=== PATIENT | male | born 1980 | race Caucasian/White ===

== ENCOUNTER 2020-03-24 09:09 | Emergency (ER) | payer OTHER, SELFPAY ==
[2020-03-24 09:24] VITALS: BP 137/78; PULSE 77; RESP 16; TEMP 37; O2SAT 97; BMI 38.4
[2020-03-24] MEDS: diphenhydrAMINE HCL 25 MG TABLET 50 MG PO (09:40)
[2020-03-24] MEDS: predniSONE 10 MG TABLET 50 MG PO (09:40)
--- NOTE | 2020-03-24 09:42 | ED_ITS ---
HPI - General Adult General Chief complaint: General Medical Stated complaint: rash Time Seen by Provider: 03/24/20 09:31 Source: patient Mode of arrival: ambulatory Limitations: no limitations History of Present Illness HPI narrative: 40 y/o male presenting with itchy, red rash to his arms, chest and stomach for the last 2 days. He reports it started on his upper arms and has spread to his chest and abdomen. He denies new lotions, soaps or detergents. No new foods. No wheezing, mouth or facial swelling. He has not taken any medications or used any topical lotions for the rash. MD complaint: rash Onset (ago): day(s) (2) Related Data Previous Rx's Medication Instructions Recorded prednisone 50 mg PO DAILY #5 tab 03/24/20 Allergies Allergy/AdvReac Type Severity Reaction Status Date / Time No Known Allergies Allergy Unverified 11/18/19 16:16 [No Known Allergies*] Review of Systems Review of Systems: Constitutional: No Fever, No Chills ENT/Mouth: No sore throat Eyes: No Eye Pain, No Swelling, No Redness Cardiovascular: No Chest Pain, No SOB Respiratory: No Cough, No Sputum Gastrointestinal: No Nausea, No Vomiting, No Diarrhea, No abdominal Pain Musculoskeletal: No joint pain, No Myalgias Skin: + Skin Lesions, + Rash Neuro: No Headache Heme/Lymph: No Bruising, No Lymphadenopathy PMFSH Past Medical History Attestation statement: The following information was validated with the patient. Medical History Asthma Social History Social History Smoked in Last 30 Days: No Use of substances other than those prescribed or required for medical reasons: No Advance Directives: No Advance Directives Information Provided: No Physical Exam Vital Signs: Vital Signs: Last Vital Signs Temp 98.6 F 03/24/20 09:24 Pulse 77 03/24/20 09:24 Resp 16 03/24/20 09:24 BP 137/78 03/24/20 09:24 Pulse Ox 97 03/24/20 09:24 Body Mass Index 38.4 Appearance: Alert. Oriented X3. No acute distress. HEENT: normal inspection. No facial swelling. CVS: Normal heart rate and rhythm. Pulses normal. Respiratory: No respiratory distress. Lungs CTAB Skin: Skin warm and dry. Normal skin color. Erythematous maclopapular rash to bilateral upper arms, chest and abdomen. No crusting, no surrounding erythema or warmth. Extremities: atraumatic, no swelling. Neuro: Oriented X 3. No motor deficit. No sensory deficit. Course Course Course Narrative: 40 y/o male presenting with pruritic rash, unknown cause. Given BSA will treat with systemic steroids. Not infected at this time. Advised to take Benadryl around the clock until resolution. Warning signs discussed to prompt re-evaluation in the ER. He will f/u with PCP next week. Stable for or[place] alfred. Critical Care Time Critical Care Time Critical Care Time: No Discharge Plan Discharge Clinical Impression: Dermatitis Patient Disposition: Home, Self-Care Instructions: Contact Dermatitis (ED) Additional Instructions: Use cool compresses or ice to the area to help with discomfort and itching. Take the prescribed steroid medication as directed. Take 1st dose tomorrow - you were given today's dose in the ER. Recommend taking Benadryl 50 mg every 6 hours for the next 24 hours. You can try topical hydrocortisone 1% lotion (Found over the counter) for itching as well. Use hypoallergenic detergent. Avoid scented soaps and lotions. If you develop shortness of breath, wheezing or facial swelling come back to the ER for further evaluation. Prescriptions: New prednisone 50 mg tablet 50 mg PO DAILY Qty: 5 RF: 0 Stand Alone Forms: Work/School Release Interventions: ED Discharge Assessment Last Done: 03/24/20 10:00 Discharge Date/Time: 03/24/20 10:01
== END 2020-03-24 10:01 | disposition home or self-care (01) ==
PROVIDERS: Emergency Provider Internal Medicine
DX: L25.9 Unspecified contact dermatitis, unspecified cause (principal); R21 Rash and other nonspecific skin eruption; J45.909 Unspecified asthma, uncomplicated
CPT/HCPCS: 99283; Q0163

== ENCOUNTER 2020-03-28 12:36 | Emergency (ER) | payer OTHER, SELFPAY ==
[2020-03-28 12:52] VITALS: BP 151/103; PULSE 66; RESP 16; TEMP 36.6; O2SAT 97; BMI 37.2
--- NOTE | 2020-03-28 12:53 | ED.ALLEREA ---
HPI - Allergic Reaction General Chief complaint: Skin/Abscess/Foreign Body Stated complaint: RASH Time Seen by Provider: 03/28/20 12:50 Source: patient Mode of arrival: ambulatory Limitations: no limitations History of Present Illness HPI narrative: Patient presents to the ED for allergic reaction rash that is improving. patient states he also needs clearnace letter from work stating rash is not contagious. patient states rash on abdomen, neck, and back resolved. patietn states only remaining rash is rash on arms. patient states his benardyl and prednisone that was prescribed was finish. MD complaint: allergic reaction and hives Related Data Previous Rx's Medication Instructions Recorded prednisone 50 mg PO DAILY #5 tab 03/24/20 diphenhydramine HCl [Benadryl] 25 mg PO TID PRN 5 Days #15 cap 03/28/20 prednisone 40 mg PO DAILY 4 Days #8 tab 03/28/20 Allergies Allergy/AdvReac Type Severity Reaction Status Date / Time No Known Allergies Allergy Unverified 11/18/19 16:16 [No Known Allergies*] Review of Systems Review of Systems: Yes all other systems are reviewed and are negative Constitutional: Constitutional: Reports as per HPI and Reports no additional constitutional complaints Eyes: Eyes: Reports as per HPI and Reports no additional eye complaints ENT: Reports system reviewed and no additional complaints, except as documented and Reports as per HPI Cardiovascular: Cardiovascular: Reports as per HPI, Reports no additional cardiovascular complaints, Denies chest pain, Denies dyspnea and Denies dyspnea on exertion Respiratory: Respiratory: Reports as per HPI, Reports no additional respiratory complaints, Denies cough, Denies dyspnea and Denies dyspnea on exertion Gastrointestinal: Gastrointestinal: Reports as per HPI and Reports no additional gastrointestinal complaints Genitourinary: Genitourinary: Reports no additional male genitourinary complaints and Reports as per HPI Musculoskeletal: Musculoskeletal: Reports no additional musculoskeletal complaints and Reports as per HPI Neurologic: Reports system reviewed and no additional complaints, except as documented and Reports as per HPI Psychiatric: Psychiatric: Reports no additional psychiatric complaints and Reports as per HPI PMFSH Past Medical History Medical History Asthma Social History Social History Advance Directives: Yes Advance Directives Information Provided: Yes Advance Directives on File: No Physical Exam Vital Signs: Vital Signs: Last Vital Signs Temp 97.8 F 03/28/20 12:52 Pulse 66 03/28/20 12:52 Resp 16 03/28/20 12:52 BP 151/103 H 03/28/20 12:52 Pulse Ox 97 03/28/20 12:52 Body Mass Index 37.2 Const: General: cooperative, healthy appearing, comfortable, no acute distress and well developed Orientation/consciousness: patient oriented x3 HENMT: Other: negative for any facial swelling, tongue swelling, lip swelling, drooling, facial/neck rash, or uvula swelling. Head: Yes normal to inspection and Yes No palpable skull fracture present Mouth: Normal oral and palatal mucosa present, lip normal and tongue normal Throat: Yes posterior oropharynx normal, Yes tonsils normal and Yes uvula midline Eyes: General: appearance normal, both eyes and all related structures Neck: Neck: Yes normal visual inspection, Yes full ROM, Yes no lymphadenopathy, Yes no meningeal signs, Yes trachea midline, No anterior neck swelling, No bilateral parotid enlargement, No lymphadenopathy, No midline deformity, No positive Brudzinski's sign, No positive Kernig's sign and No tender Chest: Other: negative for rash Chest palpation & inspection: normal inspection of the chest and normal palpation of entire chest wall Resp: Effort & Inspection: normal respiratory effort and able to speak in complete sentences Auscultation: clear to auscultation bilaterally Cardio: Jugular venous distension: no JVD Heart sounds: S1 normal heart sound present and S2 normal heart sound present GI: Other: negative for rash Inspection: Yes normal to inspection : General: No CVA tenderness and Yes no CVA tenderness Back/Spine/Pelvis: Other: negative for rash Back: no CVA tenderness, No CVA tenderness and No back tenderness Skin: Other: uticaria on biceps of both upper extremities Neuro: General: patient oriented x3, gait normal, no meningeal signs and CN's II-XI intact bilaterally Extrem: General: Yes normal to inspection and Yes full ROM Psych: Appearance: grossly normal, well kempt and not disheveled Course Course Course Narrative: Rash is improving. Patient will be given three more days of prednisone and benadryl. patient informed he can return to work. patient states no one else at home has similiar rash to him. rash indicates allergic reaction. Reevaluation(s) Reevaluation #1: patient discharged with bendaryl and prednisone. patient educated on high blood pressure due to initial blood pressure on triage. patient is asymptomatic and has no stroke symptoms. Patient informed to follow up with his PCP to monitor his blood pressure. Time: 12:58 Discharge Plan Discharge Clinical Impression: Allergic reaction Patient Disposition: Home, Self-Care Instructions: Urticaria (ED), General Allergic Reaction (ED) Additional Instructions: Return to the ED for lip/tongue/uvula swelling, shortness of breath, sensation of throat closing, fever, chills, chest pain, worsening rash, or any other concerning symptoms. Please follow up with PCP for patch test. Prescriptions: New prednisone 20 mg tablet 40 mg PO DAILY 4 Days Qty: 8 RF: 0 diphenhydramine HCl [Benadryl] 25 mg capsule 25 mg PO TID PRN (Reason: allergic reaction) 5 Days Qty: 15 RF: 0 No Action prednisone 50 mg tablet 50 mg PO DAILY Qty: 5 RF: 0 Stand Alone Forms: Work/School Release Interventions: ED Discharge Assessment Last Done: 03/28/20 13:04 Discharge Date/Time: 03/28/20 13:05 Print Language: Icelandic
== END 2020-03-28 13:05 | disposition home or self-care (01) ==
PROVIDERS: Emergency Provider Emergency Medicine
DX: T78.40XA Allergy, unspecified, initial encounter (principal); L50.9 Urticaria, unspecified; X58.XXXA Exposure to other specified factors, initial encounter
CPT/HCPCS: 99283

== ENCOUNTER 2022-09-08 08:58 | Emergency (ER) | payer OTHER, SELFPAY ==
[2022-09-08 09:04] VITALS: BP 151/95; PULSE 74; RESP 16; TEMP 36.1; O2SAT 98; BMI 37.1
[2022-09-08 09:47] VITALS: BP 139/77; PULSE 65; RESP 18; O2SAT 99
--- NOTE | 2022-09-08 10:27 | ED_ITS ---
HPI - Back Pain/Injury General Chief Complaint: Back Pain/Injury Stated Complaint: Back pain Time Seen by Provider: 09/08/22 09:47 Source: patient and RN notes reviewed Mode of arrival: ambulatory Limitations: no limitations History of Present Illness HPI Narrative: This is a 42-year-old male, with a past medical history of nephrolithiasis, presenting to the emergency department for evaluation of low back pain since yesterday. Patient states that while he was standing up from his kitchen table he suddenly felt low back pain. Patient over this past week has been worked up for kidney stones at [facility] and has a follow-up with Urology tomorrow. He states that the pain that he has in his back is different than his kidney stone pain. Patient denies any weakness, numbness, or tingling. He d enies any saddle anesthesia, denies bladder or bowel incontinence. Denies any fevers, chills, chest pain, shortness breath, abdominal pain, nausea, vomiting, or diarrhea. No other complaints or concerns at this time. MD elicited complaint: back pain Onset (ago): hour(s) Timing: constant Severity: moderate Quality: aching Location: lumbar spine Radiation: none Exacerbating factors: none Relieving factors: none Associated symptoms: denies other symptoms Treatments prior to arrival: NSAIDS Related Data Previous Rx's Medication Instructions Recorded acetaminophen 325 mg tablet 650 mg PO QID PRN pain #30 tabs 09/08/22 (Tylenol) cyclobenzaprine 5 mg tablet 5 mg PO TID PRN muscle spasm #20 09/08/22 tabs ibuprofen 600 mg tablet 600 mg PO TID PRN pain #30 tabs 09/08/22 Allergies Allergy/AdvReac Type Severity Reaction Status Date / Time No Known Allergies Allergy Unverified 09/08/22 09:07 [No Known Allergies*] Review of Systems Review of Systems: Constitutional: No Weight loss, No Fever, No Chills ENT/Mouth: No Ear Pain, No Nasal Congestion, No Sinus Pain, No Hoarseness, No sore throat, No Rhinorrhea, No Swallowing Difficulty Cardiovascular: No Chest Pain, No SOB Respiratory: No Cough, No Sputum, No Wheezing Gastrointestinal: No Nausea, No Vomiting, No Diarrhea, No Constipation, No Abdominal pain Genitourinary: No Dysuria, No Urinary Frequency, No Hematuria, No Urinary Incontinence/retention, No Urgency, No Flank Pain Musculoskeletal: No joint pain, No Myalgias, No Joint Swelling Skin: No Skin Lesions, No rash Neuro: No Weakness, No Numbness, No Paresthesias Yes all other systems are reviewed and are negative Constitutional: Constitutional: Reports as per [facility] Past Medical History Medical History Asthma Social History Social History Advance Directives: No Advance Directives Information Provided: No Physical Exam Vital Signs: Vital Signs: Last Vital Signs Temp 97 F 09/08/22 09:04 Pulse 65 09/08/22 09:47 Resp 18 09/08/22 09:47 BP 139/77 09/08/22 09:47 Pulse Ox 99 09/08/22 09:47 O2 Del Method Room Air 09/08/22 09:47 BMI result Body Mass Index 37.1 Const: Other: ambulatory General: cooperative, comfortable and no acute distress Orientation/consciousness: patient oriented x3 Limitations: no limitations HEENT: Head: Yes normal to inspection, Yes normocephalic and Yes atraumatic Ears: hearing grossly normal bilaterally General nose exam: Normal external nose present Face and sinus: Yes normal facial exam Mouth: Normal oral and palatal mucosa present, oropharynx normal and moist mucous membranes Throat: Yes posterior oropharynx normal Eyes: General: appearance normal, both eyes and all related structures Eyelids: Yes eyelids normal Conjunctivae: conjunctivae normal Sclerae: sclerae normal Pupils: Equal, round and reactive pupils present EOM: EOMs intact bilaterally Neck: Neck: Yes normal visual inspection, Yes full ROM and Yes no lymphadenopathy Lymphatic: no lymphadenopathy noted Chest: Chest palpation & inspection: normal inspection of the chest Resp: Effort & Inspection: normal respiratory effort and able to speak in complete sentences Auscultation: clear to auscultation bilaterally, no crackles, no rales, no rhonchi and no wheezes Cardio: Rate: regular rate Rhythm: regular rhythm Heart sounds: S1 normal heart sound present and S2 normal heart sound present GI: Inspection: Yes normal to inspection Back/Spine/Pelvis: Other: Patient has midline spine tenderness to palpation the lumbar spine. Mild tenderness palpation along the lumbar paraspinous muscles. Patient is ambulatory, DTRs 2+ Thoracic/Lumbar Spine: thoracic and lumbar spine normal to inspection Skin: General skin exam: no rashes or lesions noted Trauma: no lacerations or abrasions Wounds: no wounds Neuro: General: patient oriented x3 and moves all extremities Cranial nerves: Yes Equal, round and reactive pupils present Extrem: General: Yes normal to inspection Right upper extremity: normal to inspection Left upper extremity: normal to inspection Right lower extremity: normal to inspection Left lower extremity: normal to inspection Course Reevaluation(s) Reevaluation #1: unremarkable lumbar spine xrays. Sxs likely due to MSK in nature, will treat conservatively, advised to f/u with PCP. Pt understands and agrees with plan. Stable for d/c. Medications Administered Discontinued Medications Generic Name Dose Route Start Last Admin Trade Name Freq PRN Reason Stop Dose Admin Diazepam 2 mg 09/08/22 12:05 09/08/22 12:19 Diazepam 2 Mg Tablet PO 09/08/22 12:06 2 mg ONCE ONE Administration Ketorolac Tromethamine 30 mg 09/08/22 10:27 09/08/22 10:56 Ketorolac Tromethamine 30 Mg/Ml Vial IM 09/08/22 10:28 30 mg ONCE ONE Administration Medical Decision Making Medical Decision Making MDM Narrative: 42-year-old male, with a past medical history kidney stones, presenting to the emergency department for evaluation of back pain since yesterday. Patient states that while he was transitioning from seated to standing, he suddenly felt back pain. He is currently being worked up for kidney stones, and has a follow- up appointment with urologist tomorrow. He states that his current back pain is different that his kidney stone back pain. He tried taking ibuprofen yesterday without any relief. Pain worsens with palpation and with movement and positional changes. No red flag back pain symptoms. VSS. Plan: Toradol 30 mg IM, lumbar spine x-ray Differential Diagnosis Differential Diagnoses: The differential diagnosis associated with the presentation includes Sciatica, disc herniation, fracture, cauda equina syndrome Admission/Observation Consideration of admission/observation: Escalation of care including admission/observation considered Patient would have been admitted to the hospital had her work up had any findings where hospital admission was appropriate and her clinical presentation warranted hospital admission. Lab Data [facility] Lab Attestation statement: I reviewed the patient's lab results. Radiology Impression Discussion of test interpretation with radiology: I have reviewed the radiologist's reading. External Record Review External record reviewed: Inpatient record, Office record, Outpatient record, Prior outpatient labs, Prior outpatient radiology, Primary care record and Outside ED record Discharge Plan Discharge Clinical Impression: Strain of lumbar region Patient Disposition: Home, Self-Care Instructions: Acute Low Back Pain (ED) Additional Instructions: Your x-rays did not show any broken bones today. You likely pulled a muscle in her back which is causing you to have your symptoms. We gave you Toradol which is a similar medication to ibuprofen. We also give you muscle relaxant, this will cause drowsiness, do not drink alcohol or drive while taking these medications. Take prescribed medication as directed. Please follow-up with your primary care physician regarding this visit. If any new or worsening symptoms occur, including but not limited to numbness and tingling in your groin, loss of bladder or bowel control, weakness, please return for re-evaluation. Prescriptions: New ibuprofen 600 mg tablet 600 mg PO TID PRN (Reason: pain) Qty: 30 0RF acetaminophen [Tylenol] 325 mg tablet 650 mg PO QID PRN (Reason: pain) Qty: 30 0RF cyclobenzaprine 5 mg tablet 5 mg PO TID PRN (Reason: muscle spasm) Qty: 20 0RF Interventions: ED Discharge Assessment Last Done: 09/08/22 12:22 Discharge Date/Time: 09/08/22 12:22
== END 2022-09-08 12:22 | disposition home or self-care (01) ==
PROVIDERS: Emergency Provider Emergency Medicine
DX: M54.50 Low back pain, unspecified (principal); Z79.899 Other long term (current) drug therapy
CPT/HCPCS: 72100; 96372; 99283; 99284; J1885

== ENCOUNTER 2023-01-02 14:26 | Observation (INO) | payer BC, OTHER, SELFPAY ==
[2023-01-02] VITALS (8 sets, daily range): BP systolic 128–151; BP diastolic 77–95; PULSE 91–105; RESP 16–26; TEMP 36.4–37.1; O2SAT 93–97; BMI 38.1; BMI 37.6
--- NOTE | ~2023-01-02 | XR_ITS ---
EXAMINATION: XR CHEST CLINICAL INFORMATION: Wheezing. COMPARISON: Chest radiograph 11/08/2019. TECHNIQUE: 2 views of the chest were obtained. FINDINGS: Normal heart size. Bilateral central peribronchial cuffing and central vasculature engorgement is stable compared to 11/08/2019. No new focal airspace densities. No pleural effusion or pneumothorax. No acute osseous findings. Visualized upper abdomen is within normal limits. XR/XR chest 2V IMPRESSION: 1. Central vasculature engorgement and peribronchial cuffing is stable compared to 11/08/2019; these could be seen in the context of chronic small airways disease. 2. No new focal airspace densities. 3. No pleural effusion or pneumothorax.
--- NOTE | 2023-01-02 14:49 | ED_ITS ---
HPI - General Adult General Chief complaint: Asthma Stated complaint: asthma Time Seen by Provider: 01/02/23 14:57 Source: patient Mode of arrival: ambulatory Limitations: no limitations History of Present Illness HPI narrative: Patient is a 42 year old assigned male at with a history of asthma presenting to the emergency department today with an asthma exacerbation. Patient states that over the last 3 days the patient has had worsening shortness of breath and difficulty breathing. Patient denies any dizziness, lightheadedness, abdominal pain, nausea, vomiting, fever, chills, blurry vision, double vision, loss of vision, chest pain, back pain, night sweats, pain with urination, increased urinary frequency, increased urinary urgency, blood in his urine or stool, syncope or a near syncopal episode, recent trauma or falls, bowel incontinence, bladder incontinence, bowel retention, bladder retention, or any other complaints at this time. Onset (ago): day(s) (3) Severity: moderate Severity scale (1-10): 5 Relieving factors: none Exacerbating factors: none Associated symptoms: shortness of breath Treatments prior to arrival: none Related Data Home Medications Medication Instructions Recorded Confirmed No Known Home Meds 01/02/23 01/02/23 Allergies Allergy/AdvReac Type Severity Reaction Status Date / Time No Known Allergies Allergy Verified 01/02/23 14:48 [No Known Allergies*] Review of Systems 2 Constitutional: Constitutional: Reports no additional constitutional complaints, Denies chills, Denies fever(s) and Denies night sweats Eyes: Eyes: Reports no additional eye complaints, Denies blurry vision, Denies change in vision, Denies diplopia, Denies eye discharge, Denies loss of vision and Denies eye pain ENT: Denies dizziness Cardiovascular: Cardiovascular: Reports no additional cardiovascular complaints, Denies chest pain, Denies lightheadedness, Denies Loss of Consciousness and Reports dyspnea Respiratory: Respiratory: Reports no additional respiratory complaints and Reports dyspnea Gastrointestinal: Gastrointestinal: Reports no additional gastrointestinal complaints, Denies abdominal pain, Denies melena, Denies hematochezia, Denies change in bowel habits and Denies change in stool character Genitourinary: Genitourinary: Reports no additional male genitourinary complaints, Denies hematuria, Denies oliguria, Denies difficulty urinating, Denies dysuria, Denies urinary frequency, Denies urinary hesitancy, Denies urinary incontinence and Denies urinary urgency Musculoskeletal: Musculoskeletal: Reports no additional musculoskeletal complaints, Denies numbness and Denies tingling Neurologic: Denies dizziness, Denies loss of vision, Denies numbness and Denies tingling Psychiatric: Psychiatric: Reports no additional psychiatric complaints Endocrine: Endocrine: Reports no additional endocrine complaints Hematologic/Lymphatic: Hematologic/Lymphatic: Reports no additional hematologic/lymphatic complaints Allergic/Immunologic: Allergic/Immunologic: Reports no additional allergic/immunologic complaints [facility] Past Medical History Attestation statement: The following information was validated with the patient. Source: old records reviewed and nursing notes reviewed Medical History Asthma Social History Social History Advance Directives: No Advance Directives Information Provided: No Physical Exam ED Vital Signs: Vital Signs - 24 hr 01/02/23 14:48 01/02/23 15:24 01/02/23 16:22 Temperature 98.8 F Pulse Rate 100 105 H 97 Respiratory Rate 20 26 H 26 H Blood Pressure 138/95 H Pulse Oximetry 93 Oxygen Delivery Method Room Air 01/02/23 16:44 Temperature 97.9 F Pulse Rate 104 H Respiratory Rate 19 Blood Pressure 151/85 H Pulse Oximetry 97 Oxygen Delivery Method Room Air BMI result Body Mass Index 38.1 Const General: cooperative, no acute distress, alert and awake Nutritional Appearance: well nourished Orientation/consciousness: patient oriented x3 Limitations: no limitations [facility] Head: Yes normal to inspection and Yes atraumatic Ears: hearing grossly normal bilaterally and external ears normal General nose exam: Normal external nose present, no nasal discharge noted and no epistaxis Face and sinus: Yes normal facial exam, No abrasion and No laceration Mouth: Normal oral and palatal mucosa present, no drooling and no muffled voice Eyes General: appearance normal, both eyes and all related structures Periorbital: periorbital findings normal Eyelids: Yes eyelids normal Conjunctivae: conjunctivae normal Pupils: Equal, round and reactive pupils present EOM: EOMs intact bilaterally Neck Neck: Yes normal visual inspection, Yes full ROM and Yes no lymphadenopathy Chest Chest palpation & inspection: normal inspection of the chest Resp Effort & Inspection: able to speak in complete sentences and labored Auscultation: wheezes scattered wheezes Cardio Rate: regular rate Rhythm: regular rhythm GI Inspection: Yes normal to inspection Neuro General: patient oriented x3 and moves all extremities Cranial nerves: Yes Equal, round and reactive pupils present Cognition (Neuro): normal cognition Motor exam (neuro): 5/5 motor strength present throughout Sensory Exam: Normal double simultaneous stimulation for sensation Coordination: [id number] test normal Extrem General: Yes normal to inspection, Yes full ROM and Yes capillary refill normal Psych Appearance: grossly normal Mental Status: mental status grossly normal Affect: normal affect Attitude: cooperative Thought process: Normal thought process present Thought content: Normal thought content present Insight: Good insight present (Psych) Course Course Course Narrative: Patient with history of asthma has been using his albuterol for past 3 days with minimal relief, it helps but then wheezing comes back Denies fever or cough denies chest pain, O2 sat 93%, no respiratory distress Chest x-ray ordered This is rapid medical exam in triage pending full evaluation in the ER by ER provider for full history and physical review of all results any needed further evaluation and disposition Medications Administered Generic Name Dose Route Start Last Admin Trade Name Freq PRN Reason Stop Dose Admin Magnesium Sulfate 2 gm in 50 mls @ 25 mls/hr 01/02/23 16:28 01/02/23 16:48 Magnesium Sulfate/H2o IV 01/02/23 18:27 25 mls/hr ONCE ONE Administration Discontinued Medications Generic Name Dose Route Start Last Admin Trade Name Freq PRN Reason Stop Dose Admin Albuterol Sulfate 5 mg/ 7.5 mg 01/02/23 16:18 01/02/23 16:22 Albuterol Sulfate 2.5 mg INHALE 01/02/23 16:19 7.5 mg ONCE ONE Administration Albuterol Sulfate 5 mg/ 0 mg 01/02/23 15:14 01/02/23 15:20 Albuterol/Ipratropium 3 ml INHALE 01/02/23 15:15 5 each ONCE ONE Administration Methylprednisolone Sodium Succinate 60 mg 01/02/23 14:57 01/02/23 15:21 Methylprednisolone Sod Succ 125 Mg/2 Ml Vial IM 01/02/23 14:58 60 mg ONCE ONE Administration Medical Decision Making Medical Decision Making MDM Narrative: Patient is a 42 year old assigned male at with a history of asthma presenting to the emergency department today with an asthma exacerbation. Patient's physical exam was as noted in the physical exam portion of this note. Patient's blood work was unremarkable. Patient's chest x-ray showed no acute process. I explained my physical exam findings as well as all test results to the patient. I answered all questions asked by the patient. Patient received solu-medrol, IV magnesium, and 2 high dose duonebs however, the patient's symptoms persisted. I spoke with the hospitalist who agreed to admission. Patient verbalized agreement and understanding with this treatment plan and admission. Differential Diagnosis Differential Diagnoses: The differential diagnosis associated with the presentation includes Asthma exacerbation Admission/Observation Consideration of admission/observation: Escalation of care including admission/observation considered Patient admitted. Consult Healthcare Provider Management of the patient was discussed with: Hospitalist (agreed to admission.) Lab Data MDM Lab Attestation statement: I reviewed the patient's lab results. My interpretation of these studies and their corresponding values is that they are grossly normal. 01/02/23 17:18 01/02/23 17:18 Labs: Lab Results 01/02/23 Range/Units 17:18 WBC 10.9 H (4.8-10.8) X10*3/uL RBC 4.72 (4.60-5.80) X10*6/uL Hgb 13.4 L (14.0-18.0) g/dl Hct 41.5 L (42.0-52.0) % MCV 87.9 (80.0-98.0) fL MCH 28.4 (27.0-33.0) pg MCHC 32.3 (31.0-36.0) g/dl RDW 12.0 (11.0-16.0) % Plt Count 411 H (160-400) X10*3/uL MPV 9.7 (9.4-12.4) fL Immature Gran % (Auto) 0.3 (0.0-0.4) % Neut % (Auto) 75.1 H (45-73) % Lymph % (Auto) 13.7 L (20-40) % [place] % (Auto) 4.1 (2-11) % Eos % (Auto) 4.8 H (0-4) % Baso % (Auto) 2.0 (0-2) % Lymph # (Auto) 1.5 (1.2-4.9) X10*3/uL [place] # (Auto) 0.4 (0.1-1.2) X10*3/uL Eos # (Auto) 0.5 H (0.0-0.4) X10*3/uL Baso # (Auto) 0.2 (0.0-0.2) X10*3/uL Abs Immat Gran (auto) 0.03 (0.00-0.03) X10*3/uL Absolute Neuts (auto) 8.2 (2.0-8.3) x10*3/uL Absolute Nucleated RBC 0.000 (0.0-0.012) X10*3/uL Nucleated RBC % (auto) 0.0 (0.0-0.2) /100WBC Independent Interpretation I performed an independent interpretation of an: Plain X-Ray Interpretation: My interpretation is in agreement with the radiologist's impression of this imaging study. - EXAMINATION: XR CHEST CLINICAL INFORMATION: Wheezing. COMPARISON: Chest radiograph 11/08/2019. TECHNIQUE: 2 views of the chest were obtained. FINDINGS: Normal heart size. Bilateral central peribronchial cuffing and central vasculature engorgement is stable compared to 11/08/2019. No new focal airspace densities. No pleural effusion or pneumothorax. No acute osseous findings. Visualized upper abdomen is within normal limits. XR/XR chest 2V IMPRESSION: 1. Central vasculature engorgement and peribronchial cuffing is stable compared to 11/08/2019; these could be seen in the context of chronic small airways disease. 2. No new focal airspace densities. 3. No pleural effusion or pneumothorax. Dictated By: Constance Monet Signed By: Electronically signed by Constance Monet 01/02/23 1518 Radiology Impression Discussion of test interpretation with radiology: I have reviewed the radiologist's reading. Critical Care Time Critical Care Time Critical Care Time: Yes Total Critical Care Time: 45 Attestation: I spent 45 minutes of Critical Care Time with this patient. This does not include time spent on separately reported billable procedures. Discharge Plan Discharge Clinical Impression: Asthma with acute exacerbation Patient Disposition: Admitted As Inpatient Prescriptions: No Action No Known Home Meds
[2023-01-02] MEDS: Albuterol Sulfate 5 MG, Albuterol/Iprat 2.5/0.5MG 3 ML 3 ML INHALE (15:20)
[2023-01-02] MEDS: methylPREDNISolone Sod Succ 125 MG/2 ML VIAL 60 MG IM (15:21)
[2023-01-02] MEDS: Albuterol Sulfate 5 MG, Albuterol Sulfate (0.083%) 2.5 MG 7.5 MG INHALE (16:22)
[2023-01-02] MEDS: Magnesium Sulfate/H2O 2 GM/50 ML PIGGYBACK IV (16:48)
[2023-01-02 17:23] LABS: MANUAL DIFF FLAG NO
--- NOTE | 2023-01-02 17:27 | PHA.MEDREC ---
Pharmacy Consult ? Medication Reconciliation Pharmacy has completed the medication reconciliation. Patient reports no medications at home. When asked about losartan he reported he has not taken it for some time. Lucille Zimmerman, DivyaD
[2023-01-02 17:29] LABS: Basophils Absolute Auto 0.2 X10*3/uL (0.0-0.2); Eosinophils Absolute Auto 0.5 X10*3/uL (0.0-0.4); Eosinophils Percent Auto 4.8 % (0-4); Hematocrit 41.5 % (42.0-52.0); Hemoglobin 13.4 g/dl (14.0-18.0); Imm Gran Abs Auto 0.03 X10*3/uL (0.00-0.03); Imm Gran Pct Auto 0.3 % (0.0-0.4); Lymphocytes Absolute Auto 1.5 X10*3/uL (1.2-4.9); Lymphocytes Percent Auto 13.7 % (20-40); Mean Corpuscular HGB Conc 32.3 g/dl (31.0-36.0); Mean Corpuscular Hemoglobin 28.4 pg (27.0-33.0); Mean Corpuscular Volume 87.9 fL (80.0-98.0); Mean Platelet Volume 9.7 fL (9.4-12.4); Monocytes Absolute Auto 0.4 X10*3/uL (0.1-1.2); Monocytes Percent Auto 4.1 % (2-11); Neutrophils Absolute Auto 8.2 x10*3/uL (2.0-8.3); Neutrophils Percent Auto 75.1 % (45-73); Platelet Count 411 X10*3/uL (160-400); Red Blood Count 4.72 X10*6/uL (4.60-5.80); White Blood Count 10.9 X10*3/uL (4.8-10.8)
[2023-01-02 17:43] LABS: Alanine Aminotransferase 17 U/L (0-40); Albumin Level 4.2 g/dL (3.5-5.0); Alkaline Phosphatase 80 U/L (39-117); Anion Gap 12 (12-20); Aspartate Amino Transferase 21 U/L (5-37); Bilirubin Total 0.3 mg/dL (0.0-1.0); Blood Urea Nitrogen 12 mg/dL (9-16); Calcium 9.1 mg/dL (8.4-10.2); Carbon Dioxide 24 mmol/L (22-29); Chloride 108 mmol/L (96-108); Creatinine Clr Calc Pharmacy 117.8; Estimated Glomerular Filt Rate > 60; Glucose Random 117 mg/dL (60-115); Magnesium 2.8 mg/dL (1.6-2.6); Potassium 3.9 mmol/L (3.3-5.1); Sodium 140 mmol/L (135-145)
--- NOTE | 2023-01-02 17:48 | P.HPHOSP_ITS ---
History of Present Illness Date of Service: 01/02/23 Attending physician on admission: Lamin Verduzco Chief Complaint: Shortness of breath, wheezing Pt is a 42-year-old male with a PMH significant for?moderate persistent asthma who presents to the ED with?wheezing, shortness of breath, dyspnea with exertion, and cough for the past week. Patient has been experiencing symptoms despite the use of his home nebulizer and inhaler. Symptoms have persisted and worsened as the week has gone on. Has especially been having a difficult time breathing at work yesterday and today which prompted his visit to the emergency room for further evaluation. Reports being hospitalized last for an asthma exacerbation around 2 years ago. Denies fever, chills, nausea, vomiting, diarrhea. No abdominal pain. Denies headache. No chest pain/pressure, palpitations. In the ED patient was afebrile but tachycardic up to 105, tachypneic up to 26, with slightly elevated blood pressure of 151/85, satting at 97% on RA. Labs were significant for mildly elevated WBC of 10.9, stable H&H of 13.4/41.5. Electrolytes WNL. Renal and hepatic function WNL. CXR showed with no acute cardiopulmonary process seen, but did show likely chronic small airway disease. Pt was treated with DuoNebs, Solu-Medrol, and Mag sulfate. Pt will be admitted to the hospital under observation for treatment and further evaluation of acute asthma exacerbation. Review of Systems 2 Review of Systems: Wheezing, shortness of breath, dyspnea with exertion x1 week Occasional nonproductive cough Denies fever, chills, nausea, vomiting, abdominal pain No chest pain/pressure, palpitations [facility] Medical History Asthma Social History Patient Tobacco Use Status: Never used Tobacco Smoked in Last 30 Days: No Use of substances other than those prescribed or required for medical reasons: No Currently Displaying Signs/Symptoms of Drug Intoxication Withdrawal: No Advance Directives: No Advance Directives Information Provided: No Nutrition Risks: No Nutritional Risk Meds Allergies Allergy/AdvReac Type Severity Reaction Status Date / Time No Known Allergies Allergy Verified 01/02/23 14:48 [No Known Allergies*] Active Medications: Current Medications Magnesium Sulfate (Magnesium Sulfate/H2o) 2 gm in 50 mls @ 25 mls/hr IV ONCE ONE Stop: 01/02/23 18:27 Last Admin: 01/02/23 16:48 Dose: 25 mls/hr Physical Exam 2 Vital Signs and Narrative: Vital Signs: Last Vital Signs Temp 97.9 F 01/02/23 16:44 Pulse 104 H 01/02/23 16:44 Resp 19 01/02/23 16:44 BP 151/85 H 01/02/23 16:44 Pulse Ox 97 01/02/23 16:44 O2 Del Method Room Air 01/02/23 16:44 BMI result Body Mass Index 38.1 General: AOx3, no acute distress Resp: Diffuse inspiratory and expiratory wheezing and rhonchi CVS: S1, S2, RRR GI: +BS, NT, no distention Skin: No rash Neuro: Cranial nerves II-XII grossly intact bilaterally. Motor grossly intact bilaterally Extremities: No edema Psych: Appropriate affect Results Labs 01/02/23 17:18 01/02/23 17:18 Labs: Laboratory Results - last 24 hr 01/02/23 17:18 MCV 87.9 MCH 28.4 MCHC 32.3 RDW 12.0 Plt Count 411 H MPV 9.7 Immature Gran % (Auto) 0.3 Neut % (Auto) 75.1 H Lymph % (Auto) 13.7 L [place] % (Auto) 4.1 Eos % (Auto) 4.8 H Baso % (Auto) 2.0 Lymph # (Auto) 1.5 [place] # (Auto) 0.4 Eos # (Auto) 0.5 H Baso # (Auto) 0.2 Abs Immat Gran (auto) 0.03 Absolute Neuts (auto) 8.2 Absolute Nucleated RBC 0.000 Nucleated RBC % (auto) 0.0 Anion Gap 12 Estim Creat Clear Calc 117.8 Estimated GFR > 60 Random Glucose 117 H Calcium 9.1 Magnesium 2.8 H Total Bilirubin 0.3 AST 21 ALT 17 Alkaline Phosphatase 80 Total Protein 8.0 Albumin 4.2 Imaging Radiologist's Impressions: Impressions Chest X-Ray 01/02/23 15:04 IMPRESSION: 1. Central vasculature engorgement and peribronchial cuffing is stable compared to 11/08/2019; these could be seen in the context of chronic small airways disease. 2. No new focal airspace densities. 3. No pleural effusion or pneumothorax. Assessment and Plan (1) Asthma with acute exacerbation: Qualifiers: Asthma persistence: persistent Asthma severity: moderate Qualified Code(s): J45.41 - Moderate persistent asthma with (acute) exacerbation Status: Acute Plan Pt is a 42-year-old male with a PMH significant for?moderate persistent asthma who presents to the ED with?wheezing, shortness of breath, dyspnea with exertion, and cough for the past week. Acute moderate persistent asthma exacerbation Patient with worsening wheezing, SOB, dyspnea, cough x1 week despite use of home nebulizers and inhalers Pt with continued significant wheezing and rhonchi on exam despite receiving multiple DuoNebs, IV steroids, and Mag sulfate in the ED Patient not hypoxic, satting at 97% on RA Will treat with DuoNebs, Solu-Medrol, benzonatate Patient does not meet sepsis criteria: No sign of active infection, tachycardia and tachypnea secondary to steroids and breathing treatments Monitor respiratory status Full Code Attending:?Dr. Verduzco DVT Prophylaxis: Pt ambulatory Patient will be admitted to the hospital under observation for treatment and further evaluation of acute moderate persistent asthma exacerbation. Quality Stroke Does the patient have a stroke diagnosis?: No VTE Prior VTE?: No VTE Risk Level:: Medical - low VTE Device Contraindication: Treatment Not Indicated VTE Drug Contraindication: Treatment Not Indicated
[2023-01-02 18:02] LABS: Influenza A PCR NEGATIVE (Negative); Influenza B PCR NEGATIVE (Negative); Resp Syncy Virus RNA Qual PCR NEGATIVE (Negative); SARS COV2 PCR INHOUSE NEGATIVE (Negative)
--- NOTE | 2023-01-02 18:46 | PC.NURSE ---
Patient changed over into hospital gown, resting on stretcher, respirations even and unlabored, skin pwd, alert and oriented x4. Pt verbalizes no concerns to this RN at this time
[2023-01-02] MEDS: Albuterol/Iprat 2.5/0.5MG 3 ML AMPUL.NEB INHALE (19:57)
[2023-01-03] MEDS: methylPREDNISolone Sod Succ 40 MG/ML VIAL IVPUSH (02:54)
[2023-01-03] MEDS: 0.9 % Sodium Chloride Flush 3 ML SYRINGE IVFLUSH ×2 (02:54→09:13)
[2023-01-03 03:18] VITALS: BP 145/85; PULSE 95; RESP 18; TEMP 36.6; O2SAT 92
[2023-01-03] MEDS: Albuterol/Iprat 2.5/0.5MG 3 ML AMPUL.NEB INHALE ×3 (03:19→12:01)
[2023-01-03 03:21] VITALS: PULSE 100; RESP 18; O2SAT 95
[2023-01-03 07:19] VITALS: BP 130/71; PULSE 98; RESP 24; TEMP 36.3; O2SAT 92
[2023-01-03 11:28] VITALS: BP 147/84; PULSE 92; RESP 18; TEMP 37.1; O2SAT 94
--- NOTE | 2023-01-03 11:54 | P.DS_ITS ---
DS: Providers Provider Date of Service: 01/03/23 Date of admission: 01/02/23 18:07 Primary care physician: Unknown Physician DS: Diagnosis Discharge Diagnosis (1) Asthma with acute exacerbation: Status: Acute DS: Summary Hospital Course Hospital Course: Admission note HPI Pt is a 42-year-old male with a PMH significant for?moderate persistent asthma who presents to the ED with?wheezing, shortness of breath, dyspnea with exertion, and cough for the past week. Patient has been experiencing symptoms despite the use of his home nebulizer and inhaler. Symptoms have persisted and worsened as the week has gone on. Has especially been having a difficult time breathing at work yesterday and today which prompted his visit to the emergency room for further evaluation. Reports being hospitalized last for an asthma exacerbation around 2 years ago. Denies fever, chills, nausea, vomiting, diarrhea. No abdominal pain. Denies headache. No chest pain/pressure, palpitations. In the ED patient was afebrile but tachycardic up to 105, tachypneic up to 26, w ith slightly elevated blood pressure of 151/85, satting at 97% on RA. Labs were significant for mildly elevated WBC of 10.9, stable H&H of 13.4/41.5. Electrolytes WNL. Renal and hepatic function WNL. CXR showed with no acute cardiopulmonary process seen, but did show likely chronic small airway disease. Pt was treated with DuoNebs, Solu-Medrol, and Mag sulfate. Pt will be admitted to the hospital under observation for treatment and further evaluation of acute asthma exacerbation. Hospital course Admitted for treatment of asthma exacerbation with CXR showing central congestion suggestive of chronic small airway disease. improved with IV steroids and nebulizers. did not require oxygen supplement and was able to ambulate with less dyspnea. USe your daily inhalors as prescribed Ventolin inhalor as needed Continue Prednisone Follow with pulmonology as outpatient Time Attestation Discharge coordination time: Greater than 30 minutes Quality: Safe Use of Opioids Does Pt have an Active Cancer Diagnosis on the Problem List?: No Quality: Stroke Does the patient have a stroke diagnosis?: No Physical Exam Vital Signs: Vital Signs: Last Vital Signs Temp 98.7 F 01/03/23 11:28 Pulse 92 01/03/23 11:28 Resp 18 01/03/23 11:28 BP 147/84 H 01/03/23 11:28 Pulse Ox 94 01/03/23 11:28 O2 Del Method Room Air 01/03/23 11:28 BMI result Body Mass Index 37.6 Const: Other: Constitutional : Awake, interactive, not in distress Neck : Normal inspection, Supple Cardiovascular : RRR, no JVP, no lower extremity edema Respiratory : good bilateral air entry, no crackles, fine expiratory wheezes Gastrointestinal: soft, lax, Normal bowel sounds, Non tender Skin : Warm, Dry Neurological : Alert & oriented x3, No focal deficit DS: Data Data Completed and Pending Labs on day of discharge: Laboratory Results - last 24 hr 01/02/23 17:18 WBC 10.9 H RBC 4.72 Hgb 13.4 L Hct 41.5 L MCV 87.9 MCH 28.4 MCHC 32.3 RDW 12.0 Plt Count 411 H MPV 9.7 Immature Gran % (Auto) 0.3 Neut % (Auto) 75.1 H Lymph % (Auto) 13.7 L [place] % (Auto) 4.1 Eos % (Auto) 4.8 H Baso % (Auto) 2.0 Lymph # (Auto) 1.5 [place] # (Auto) 0.4 Eos # (Auto) 0.5 H Baso # (Auto) 0.2 Abs Immat Gran (auto) 0.03 Absolute Neuts (auto) 8.2 Absolute Nucleated RBC 0.000 Nucleated RBC % (auto) 0.0 Sodium 140 Potassium 3.9 Chloride 108 Carbon Dioxide 24 Anion Gap 12 BUN 12 Creatinine 1.03 Estim Creat Clear Calc 117.8 Estimated GFR > 60 Random Glucose 117 H Calcium 9.1 Magnesium 2.8 H Total Bilirubin 0.3 AST 21 ALT 17 Alkaline Phosphatase 80 Total Protein 8.0 Albumin 4.2 Influenza Type A (PCR) NEGATIVE Influenza Type B (PCR) NEGATIVE RSV RNA Qual (PCR) NEGATIVE SARS-CoV-2 RNA (RT-PCR) NEGATIVE Imaging Chest x-ray: Radiologist's impression: ITS Impressions Chest X-Ray 01/02/23 15:04 IMPRESSION: 1. Central vasculature engorgement and peribronchial cuffing is stable compared to 11/08/2019; these could be seen in the context of chronic small airways disease. 2. No new focal airspace densities. 3. No pleural effusion or pneumothorax. Discharge Plan Discharge Anticipated Discharge Date/Time: 01/03/23 11:40 Patient Disposition: Home, Self-Care Discharge Diagnosis: Asthma exacerbation Referrals: Physician,Unknown J [Primary Care Provider] - 1 Week Discharge Medications: New prednisone 20 mg tablet 40 mg PO DAILY Qty: 10 0RF albuterol sulfate [Ventolin HFA] 90 mcg/actuation HFA aerosol inhaler 2 puff inhalation Q6H PRN (Reason: shortness of breath or wheezing) Qty: 6.7 1RF Discharge Orders: Discharge Order (Routine); Ordered 01/03/23 Ordered By: Lamin Verduzco Diet: Advance to usual diet Activity on Discharge: As tolerated Stand Alone Forms: Patient Portal Discharge page, Work/School Release Care Plan Goals: Read below Health Concerns: Read below Plan of Treatment: Read below Assessment: USe your daily inhalors as prescribed Ventolin inhalor as needed Continue Prednisone Follow with pulmonology as outpatient Discharge Date/Time: 01/03/23 12:56
[2023-01-03 12:02] VITALS: PULSE 92; RESP 18; O2SAT 94
--- NOTE | 2023-01-03 12:44 | MHC.CM.PN ---
MEKA 01/03/23 Lives with family. He is independent with all functional mobility. The patient declined the offer to document a HCP. DP home self care. A family member will provide transportation home. Patient is discharged today.
== END 2023-01-03 12:56 | disposition home or self-care (01) ==
LOC: HO.ED 17:42 → HO.EDOVER 18:29 → HO.S3 19:20
PROVIDERS: Physician Assistant Medical; Admitting Provider Student in an Organized Health Care Education/Training Program; Emergency Provider Emergency Medicine; Visit Provider Student in an Organized Health Care Education/Training Program
DX: J45.41 Moderate persistent asthma with (acute) exacerbation (principal); Z79.899 Other long term (current) drug therapy; Z20.822 Contact with and (suspected) exposure to COVID-19; Z20.828 Contact with and (suspected) exposure to other viral communicable diseases
CPT/HCPCS: 0241U; 71046; 80053; 83735; 85025; 94640; 96365; 96366; 96372; 96375; 99221; 99285; J2920; J2930; J3475

== ENCOUNTER → 2023-01-02 18:07 | Outpatient (BNV) | payer BC, OTHER, SELFPAY | PROVIDERS: Admitting Provider Student in an Organized Health Care Education/Training Program; Emergency Provider Emergency Medicine; Visit Provider Student in an Organized Health Care Education/Training Program | DX: J45.41 Moderate persistent asthma with (acute) exacerbation (principal) | CPT/HCPCS: 99222; 99239 ==

== ENCOUNTER 2023-01-18 08:32 | Observation (INO) | payer BC, SELFPAY ==
[2023-01-18] VITALS (10 sets, daily range): BP systolic 122–142; BP diastolic 67–92; PULSE 76–94; RESP 11–19; TEMP 36.5–36.9; O2SAT 91–97; BMI 35.4; BMI 35.8
--- NOTE | ~2023-01-18 | XR_ITS ---
EXAMINATION: XR CHEST CLINICAL INFORMATION: Cough, shortness of breath COMPARISON: X-ray 01/02/2023 TECHNIQUE: 2 views of the chest were obtained. FINDINGS: Normal heart size. Central vascular prominence and bilateral central peribronchial cuffing, unchanged from previous. No new focal consolidation. No pleural effusion. No pneumothorax. Thoracic spine degeneration. No acute finding in the visualized upper abdomen. No acute osseous findings. XR/XR chest 2V IMPRESSION: 1. Stable central vascular prominence and peribronchial cuffing, unchanged from 01/02/2023. 2. No new focal consolidation/airspace disease is seen.
--- NOTE | 2023-01-18 09:16 | ED.ASTHMA ---
HPI - Asthma General Chief Complaint: Asthma Stated Complaint: asthma Time Seen by Provider: 01/18/23 08:44 Source: patient Mode of arrival: ambulatory Limitations: no limitations History of Present Illness HPI Narrative: 42-year-old male with a history of asthma presents the ER with complaints of cough, wheezing, shortness of breath this morning with waking. Per patient he was admitted to [facility] 2 weeks ago for asthma exacerbation. He had been off prednisone until yesterday when his thermal molder Dr. Green started him back on prednisone. Patient reports he takes albuterol p.r.n. and a nebulizer machine and when he is sick. He does not use any daily ICS. He denies any chest pain, leg swelling, leg pain, fevers, runny nose, sore throat. Related Data Previous Rx's Medication Instructions Recorded albuterol sulfate 90 mcg/actuation 2 puff inhalation Q6H PRN 01/03/23 aerosol inhaler (Ventolin HFA) shortness of breath or wheezing #6.7 grams prednisone 20 mg tablet 40 mg (2 x 20 mg) PO DAILY #10 tabs 01/03/23 Allergies Allergy/AdvReac Type Severity Reaction Status Date / Time No Known Allergies Allergy Verified 01/02/23 14:48 [No Known Allergies*] Review of Systems Review of Systems: Yes all other systems are reviewed and are negative Constitutional: Constitutional: Reports no additional constitutional complaints, Denies body ache(s), Denies chills, Denies fever(s), Denies headache(s) and Denies weakness Eyes: Eyes: Reports no additional eye complaints and Denies change in vision ENT: Reports system reviewed and no additional complaints, except as documented, Denies dizziness, Denies headache(s), Denies nasal congestion, Denies nasal discharge and Denies neck pain Cardiovascular: Cardiovascular: Reports no additional cardiovascular complaints, Denies chest pain, Denies leg edema and Reports dyspnea Respiratory: Respiratory: Reports no additional respiratory complaints, Reports cough, Reports dyspnea and Reports wheezing Gastrointestinal: Gastrointestinal: Reports no additional gastrointestinal complaints, Denies abdominal pain, Denies diarrhea, Denies nausea and Denies vomiting Genitourinary: Genitourinary: Denies urinary incontinence Musculoskeletal: Musculoskeletal: Reports no additional musculoskeletal complaints, Denies back pain, Denies arthralgias, Denies joint swelling, Denies neck pain, Denies numbness and Denies tingling Integumentary/Breasts: Skin/Breast: Reports system reviewed and no additional complaints, except as docu and Denies rash Neurologic: Reports system reviewed and no additional complaints, except as documented, Denies Abnormal speech present, Denies dizziness, Denies headache(s), Denies numbness, Denies tingling and Denies weakness Allergic/Immunologic: Allergic/Immunologic: Reports wheezing [facility] Past Medical History Attestation statement: The following information was validated with the patient. Source: old records reviewed and nursing notes reviewed Medical History Asthma Social History Social History Patient Tobacco Use Status: Never used Tobacco Smoked in Last 30 Days: No Use of substances other than those prescribed or required for medical reasons: No Advance Directives: No Advance Directives Information Provided: Yes service: No Physical Exam Vital Signs: Vital Signs: Last Vital Signs Temp 98.5 F 01/18/23 13:42 Pulse 82 01/18/23 14:53 Resp 17 01/18/23 14:53 BP 142/86 H 01/18/23 13:42 Pulse Ox 93 01/18/23 13:42 O2 Del Method Room Air 01/18/23 13:42 BMI result Body Mass Index 35.4 Const: General: cooperative, healthy appearing, comfortable and no acute distress Orientation/consciousness: patient oriented x3 Limitations: no limitations HEENT: Head: Yes normal to inspection Ears: hearing grossly normal bilaterally and TM's normal bilaterally General nose exam: Normal external nose present Face and sinus: Yes normal facial exam Mouth: Normal oral and palatal mucosa present Throat: Yes posterior oropharynx normal, Yes tonsils normal and Yes uvula midline Eyes: General: appearance normal, both eyes and all related structures Pupils: Equal, round and reactive pupils present Neck: Neck: Yes normal visual inspection Chest: Chest palpation & inspection: normal inspection of the chest Resp: Effort & Inspection: normal respiratory effort Auscultation: wheezes Cardio: Rate: regular rate Rhythm: regular rhythm Peripheral pulses: Peripheral pulses 2+ throughout GI: Inspection: Yes normal to inspection Palpation (GI): Soft to palpation and nontender Auscultation: normal bowel sounds Back/Spine/Pelvis: Thoracic/Lumbar Spine: thoracic and lumbar spine normal to inspection Skin: General skin exam: no rashes or lesions noted Neuro: General: patient oriented x3, no focal motor deficits and normal sensation to monofilament Cranial nerves: Yes Equal, round and reactive pupils present Cognition (Neuro): normal cognition Speech: No Abnormal speech present Gait exam (Neuro): Normal gait present Motor exam (neuro): 5/5 motor strength present throughout Extrem: General: Yes normal to inspection, Yes no pedal edema and Yes no calf tenderness Course Course Course Narrative: 1100-continued wheezing. Will repeat nebulizer Reevaluation(s) Reevaluation #1: 1330-Continued wheezing. Will repeat neb. due to persistent symptoms despite multiple rounds of nebulizers, magnesium, Solu-Medrol consider admission for asthma exacerbation. Will discuss with hospitalist Medications Administered Discontinued Medications Generic Name Dose Route Start Last Admin Trade Name Freq PRN Reason Stop Dose Admin Acetaminophen 975 mg 01/18/23 12:52 01/18/23 13:08 Acetaminophen 325 Mg Tablet PO 01/18/23 12:53 975 mg ONCE ONE Administration Albuterol Sulfate 2.5 mg/ 5 mg 01/18/23 09:53 01/18/23 09:55 Albuterol Sulfate 2.5 mg INHALE 01/18/23 09:54 5 mg ONCE ONE Administration Albuterol Sulfate 2.5 mg/ 5 mg 01/18/23 14:33 01/18/23 14:52 Albuterol Sulfate 2.5 mg INHALE 01/18/23 14:34 5 mg ONCE ONE Administration Albuterol/Ipratropium 3 ml 01/18/23 10:49 01/18/23 11:15 Albuterol/Iprat 2.5/0.5mg 3 Ml Ampul.Neb INHALE 01/18/23 10:50 3 ml ONCE ONE Administration Magnesium Sulfate 2 gm in 50 mls @ 25 mls/hr 01/18/23 09:02 01/18/23 11:42 Magnesium Sulfate/H2o IV 01/18/23 11:01 Infused ONCE ONE Infusion Methylprednisolone Sodium Succinate 125 mg 01/18/23 09:02 01/18/23 09:34 Methylprednisolone Sod Succ 125 Mg/2 Ml Vial IVPUSH 01/18/23 09:03 125 mg ONCE ONE Administration Medical Decision Making Medical Decision Making MDM Narrative: 42-year-old male with a history of asthma presents the ER with complaints of cough, wheezing, shortness of breath this morning with waking.? Per patient he was admitted to [facility] 2 weeks ago for asthma exacerbation.? He had been off prednisone until yesterday when his thermal molder Dr. Green started him back on prednisone.? Patient reports he takes albuterol p.r.n. and a nebulizer machine and when he is sick.? He does not use any daily ICS.? He denies any chest pain, leg swelling, leg pain, fevers, runny nose, sore throat. On exam patient is wheezing. Will obtain labs, chest x-ray, viral testing. Will give Solu-Medrol, nebulizer, magnesium Differential Diagnosis Differential Diagnoses: The differential diagnosis associated with the presentation includes Asthma exacerbation Low concern for PE, pneumonia, ACS Admission/Observation Consideration of admission/observation: Escalation of care including admission/observation considered Persistent symptoms despite multiple rounds nebulizers, Solu-Medrol, magnesium Consult Healthcare Provider Management of the patient was discussed with: Hospitalist Spoke to Lab Data [facility] Lab Attestation statement: I reviewed the patient's lab results. Mild leukocytosis otherwise unremarkable 01/18/23 09:30 01/18/23 09:30 Labs: Lab Results 01/18/23 01/18/23 Range/Units 09:21 09:30 WBC 11.1 H (4.8-10.8) X10*3/uL RBC 4.53 L (4.60-5.80) X10*6/uL Hgb 13.2 L (14.0-18.0) g/dl Hct 39.2 L (42.0-52.0) % MCV 86.5 (80.0-98.0) fL MCH 29.1 (27.0-33.0) pg MCHC 33.7 (31.0-36.0) g/dl RDW 12.5 (11.0-16.0) % Plt Count 362 (160-400) X10*3/uL MPV 10.0 (9.4-12.4) fL Immature Gran % (Auto) 0.4 (0.0-0.4) % Neut % (Auto) 66.4 (45-73) % Lymph % (Auto) 21.6 (20-40) % [place] % (Auto) 5.7 (2-11) % Eos % (Auto) 4.5 H (0-4) % Baso % (Auto) 1.4 (0-2) % Lymph # (Auto) 2.4 (1.2-4.9) X10*3/uL [place] # (Auto) 0.6 (0.1-1.2) X10*3/uL Eos # (Auto) 0.5 H (0.0-0.4) X10*3/uL Baso # (Auto) 0.2 (0.0-0.2) X10*3/uL Abs Immat Gran (auto) 0.04 H (0.00-0.03) X10*3/uL Absolute Neuts (auto) 7.4 (2.0-8.3) x10*3/uL Absolute Nucleated RBC 0.000 (0.0-0.012) X10*3/uL Nucleated RBC % (auto) 0.0 (0.0-0.2) /100WBC Sodium 141 (135-145) mmol/L Potassium 3.6 (3.3-5.1) mmol/L Chloride 108 (96-108) mmol/L Carbon Dioxide 24 (22-29) mmol/L Anion Gap 13 (12-20) BUN 16 (9-16) mg/dL Creatinine 0.95 (0.5-1.4) mg/dL Estim Creat Clear Calc 123.1 Estimated GFR > 60 Random Glucose 81 (60-115) mg/dL Calcium 9.9 D (8.4-10.2) mg/dL Total Bilirubin 0.6 (0.0-1.0) mg/dL Direct Bilirubin 0.2 (0.0-0.5) mg/dL AST 18 (5-37) U/L ALT 14 (0-40) U/L Alkaline Phosphatase 64 (39-117) U/L Total Protein 7.7 (6.5-8.0) g/dL Albumin 4.2 (3.5-5.0) g/dL Influenza Type A (PCR) NEGATIVE (Negative) Influenza Type B (PCR) NEGATIVE (Negative) RSV RNA Qual (PCR) NEGATIVE (Negative) SARS-CoV-2 RNA (RT-PCR) NEGATIVE (Negative) Independent Interpretation I performed an independent interpretation of an: Plain X-Ray Interpretation: I independently reviewed the x-ray and agree with the radiology report Radiology Impression Discussion of test interpretation with radiology: I have reviewed the radiologist's reading. Radiologist Impression: [address] [address] XRay Report Signed Patient: Alpesh Pritchett MR#: [id number] : 1980 Acct:[id number] Age/Sex: 42 / M ADM Date: 01/18/23 Loc: HO.ED Attending Dr: Ordering Physician: Tami Whitman NP Date of Service: 01/18/23 Procedure(s): XR chest 2V Accession Number(s): [id number] cc: Physician,None ; Tami Whitman NP~ EXAMINATION: XR CHEST CLINICAL INFORMATION: Cough, shortness of breath COMPARISON: X-ray 01/02/2023 TECHNIQUE: 2 views of the chest were obtained. FINDINGS: Normal heart size. Central vascular prominence and bilateral central peribronchial cuffing, unchanged from previous. No new focal consolidation. No pleural effusion. No pneumothorax. Thoracic spine degeneration. No acute finding in the visualized upper abdomen. No acute osseous findings. XR/XR chest 2V IMPRESSION: 1. Stable central vascular prominence and peribronchial cuffing, unchanged from 01/02/2023. 2. No new focal consolidation/airspace disease is seen. Discharge Plan Discharge Clinical Impression: Asthma with acute exacerbation Patient Disposition: Admitted As Inpatient
[2023-01-18] MEDS: methylPREDNISolone Sod Succ 125 MG/2 ML VIAL IVPUSH (09:34)
[2023-01-18] MEDS: Magnesium Sulfate/H2O 2 GM/50 ML PIGGYBACK IV (09:34)
[2023-01-18 09:36] LABS: MANUAL DIFF FLAG NO
[2023-01-18 09:38] LABS: Basophils Absolute Auto 0.2 X10*3/uL (0.0-0.2); Basophils Percent Auto 1.4 % (0-2); Eosinophils Absolute Auto 0.5 X10*3/uL (0.0-0.4); Eosinophils Percent Auto 4.5 % (0-4); Hematocrit 39.2 % (42.0-52.0); Hemoglobin 13.2 g/dl (14.0-18.0); Imm Gran Abs Auto 0.04 X10*3/uL (0.00-0.03); Imm Gran Pct Auto 0.4 % (0.0-0.4); Lymphocytes Absolute Auto 2.4 X10*3/uL (1.2-4.9); Lymphocytes Percent Auto 21.6 % (20-40); Mean Corpuscular HGB Conc 33.7 g/dl (31.0-36.0); Mean Corpuscular Hemoglobin 29.1 pg (27.0-33.0); Mean Corpuscular Volume 86.5 fL (80.0-98.0); Monocytes Absolute Auto 0.6 X10*3/uL (0.1-1.2); Monocytes Percent Auto 5.7 % (2-11); Neutrophils Absolute Auto 7.4 x10*3/uL (2.0-8.3); Neutrophils Percent Auto 66.4 % (45-73); Platelet Count 362 X10*3/uL (160-400); Red Blood Count 4.53 X10*6/uL (4.60-5.80); Red Cell Distribution Width 12.5 % (11.0-16.0); White Blood Count 11.1 X10*3/uL (4.8-10.8)
--- NOTE | 2023-01-18 09:51 | PC.NURSE ---
pt a&o x3, pleasant, calm, and cooperative. 20G IV placed to RAC. pt medicated per may. pt currently resting quietly on stretcher in no apparent distress. pt appears well, speaking in full complete sentences. no labored breathing. audible wheezing decreased. pt sating 93% on room air. awaiting respiratory therapy. rr even/unlabored. call aburto within pt reach. plan of care ongoing.
[2023-01-18 09:52] LABS: Alanine Aminotransferase 14 U/L (0-40); Albumin Level 4.2 g/dL (3.5-5.0); Alkaline Phosphatase 64 U/L (39-117); Anion Gap 13 (12-20); Aspartate Amino Transferase 18 U/L (5-37); Bilirubin Direct 0.2 mg/dL (0.0-0.5); Bilirubin Total 0.6 mg/dL (0.0-1.0); Blood Urea Nitrogen 16 mg/dL (9-16); Calcium 9.9 mg/dL (8.4-10.2); Carbon Dioxide 24 mmol/L (22-29); Chloride 108 mmol/L (96-108); Creatinine Clr Calc Pharmacy 123.1; Estimated Glomerular Filt Rate > 60; Glucose Random 81 mg/dL (60-115); Potassium 3.6 mmol/L (3.3-5.1); Sodium 141 mmol/L (135-145); Total Protein 7.7 g/dL (6.5-8.0)
[2023-01-18] MEDS: Albuterol Sulfate 2.5 MG, Albuterol Sulfate (0.083%) 2.5 MG 5 MG INHALE ×2 (09:55→14:52)
[2023-01-18 10:13] LABS: Influenza A PCR NEGATIVE (Negative); Influenza B PCR NEGATIVE (Negative); Resp Syncy Virus RNA Qual PCR NEGATIVE (Negative); SARS COV2 PCR INHOUSE NEGATIVE (Negative)
--- NOTE | 2023-01-18 10:35 | PC.NURSE ---
pt given albuterol treatment by respiratory. placed on bedside monitor.
--- NOTE | 2023-01-18 10:42 | PC.NURSE ---
pt found to be sating 88% on room air. pt put in high fowlers and O2 came up to 97% on room air. pt sts he does not feel better after medications/breathing treatments. O2 sats fluctuating from 92%-97% on room air. pt visitor at bedside. wheezing not as audible as when pt first triaged. call aburto within pt reach. rr even/unlabored 14RR. plan of care ongoing.
[2023-01-18] MEDS: Albuterol/Iprat 2.5/0.5MG 3 ML AMPUL.NEB INHALE ×2 (11:15→20:54)
[2023-01-18] MEDS: Acetaminophen 325 MG TABLET 975 MG PO (13:08)
--- NOTE | 2023-01-18 15:58 | P.HPHOSP_ITS ---
History of Present Illness Date of Service: 01/18/23 Attending physician on admission: Ezekiel Osborn Chief Complaint: shortness of breath This is a 42 year old male with history of asthma who presents to the ED with complaints of shortness of breath. He had a recent [place] [facility] and then was placed back on steroids by his kiln loader. He reports worsening shortness of breath for the past two days. He has associated dry cough and pain with coughing. He denies any recent sick contacts. He has been using his nebulizer machine at every 4 hours a continues to have persistent shortness of breath especially with exertion. He denies any chest pain. He denies any history of requiring intubation. In the emergency department chest x-ray showed central vascular prominence and peribronchial cuffing which is unchanged from January 02 chest x-ray. He was afebrile, lab work with minimal elevated in white count at 11.1. He received multiple breathing treatments, IV solumedrol and IV magnesium, but his wheezing persisted. He denies smoking tobacco or any other substances. He will be admitted overnight for observation and further management of acute exacerbation of asthma Review of Systems 2 Review of Systems: Yes all other systems are reviewed and are negative Constitutional: Constitutional: Denies chills and Denies fever(s) Respiratory: Respiratory: Reports cough and Reports pain with cough Gastrointestinal: Gastrointestinal: Reports abdominal pain PMFSH Medical History Asthma Functional capacity: independent ambulation Family History (Updated 01/18/23 @ 16:06 by NOVA Gibson) Brother Asthma Social History Patient Tobacco Use Status: Never used Tobacco Smoked in Last 30 Days: No Use of substances other than those prescribed or required for medical reasons: No Advance Directives: No Advance Directives Information Provided: Yes service: No Meds Allergies Allergy/AdvReac Type Severity Reaction Status Date / Time No Known Allergies Allergy Verified 01/02/23 14:48 [No Known Allergies*] Active Medications: Current Medications Acetaminophen (Acetaminophen 325 Mg Tablet) 650 mg PO Q6H PRN PRN Reason: Pain, Mild (Pain Scale 1-3) Albuterol Sulfate (Albuterol Sulfate (0.083%) 2.5 Mg/3 Ml Vial.Neb) 2.5 mg INHALE Q4H PRN PRN Reason: Shortness of Breath/Wheezing Albuterol/Ipratropium (Albuterol/Iprat 2.5/0.5mg 3 Ml Ampul.Neb) 3 ml INHALE RQ4H WHILE AWAKE ANNIKA Benzonatate (Benzonatate 100 Mg Capsule) 100 mg PO TID PRN PRN Reason: Cough Docusate Sodium (Docusate Sodium 100 Mg Capsule) 100 mg PO DAILY PRN PRN Reason: Constipation Enoxaparin Sodium (Enoxaparin Sodium 40 Mg/0.4 Ml Syringe) 40 mg SUBCUT Q24H ANNIKA Methylprednisolone Sodium Succinate (Methylprednisolone Sod Succ 40 Mg/Ml Vial) 40 mg IVPUSH Q12H ANNIKA Ondansetron HCl (Ondansetron Hcl 4 Mg/2 Ml Vial) 4 mg IVPUSH Q8H PRN PRN Reason: Nausea and Vomiting Sodium Chloride (0.9 % Sodium Chloride Flush 3 Ml Syringe) 3 ml IVFLUSH QSHIFT [facility] Physical Exam 2 Vital Signs and Narrative: Vital Signs: Last Vital Signs Temp 98.5 F 01/18/23 13:42 Pulse 82 01/18/23 14:53 Resp 17 01/18/23 14:53 BP 142/86 H 01/18/23 13:42 Pulse Ox 93 01/18/23 13:42 O2 Del Method Room Air 01/18/23 13:42 BMI result Body Mass Index 35.4 Const: General: cooperative, comfortable, no acute distress, alert and awake Nutritional Appearance: average body habitus Orientation/consciousness: p atient oriented x3 Resp: Other: diffuse wheezing Cardio: Rate: regular rate Heart sounds: S1 normal heart sound present and S2 normal heart sound present GI: Inspection: No distended Palpation (GI): Soft to palpation and nontender Neuro: General: patient oriented x3, moves all extremities and CN's II-XI intact bilaterally Extrem: General: Yes no pedal edema Results Labs 01/18/23 09:30 01/18/23 09:30 Labs: Laboratory Results - last 24 hr 01/18/23 01/18/23 09:21 09:30 MCV 86.5 MCH 29.1 MCHC 33.7 RDW 12.5 Plt Count 362 MPV 10.0 Immature Gran % (Auto) 0.4 Neut % (Auto) 66.4 Lymph % (Auto) 21.6 [place] % (Auto) 5.7 Eos % (Auto) 4.5 H Baso % (Auto) 1.4 Lymph # (Auto) 2.4 [place] # (Auto) 0.6 Eos # (Auto) 0.5 H Baso # (Auto) 0.2 Abs Immat Gran (auto) 0.04 H Absolute Neuts (auto) 7.4 Absolute Nucleated RBC 0.000 Nucleated RBC % (auto) 0.0 Anion Gap 13 Estim Creat Clear Calc 123.1 Estimated GFR > 60 Random Glucose 81 Calcium 9.9 D Total Bilirubin 0.6 Direct Bilirubin 0.2 AST 18 ALT 14 Alkaline Phosphatase 64 Total Protein 7.7 Albumin 4.2 Influenza Type A (PCR) NEGATIVE Influenza Type B (PCR) NEGATIVE RSV RNA Qual (PCR) NEGATIVE SARS-CoV-2 RNA (RT-PCR) NEGATIVE Imaging Radiologist's Impressions: Impressions Chest X-Ray 01/18/23 09:03 IMPRESSION: 1. Stable central vascular prominence and peribronchial cuffing, unchanged from 01/02/2023. 2. No new focal consolidation/airspace disease is seen. Assessment and Plan (1) Asthma with acute exacerbation: Status: Acute Plan This is a 42 year old male with history of asthma and recent admission to the hospital for the same who presents to the ED with two days of worsening shortness of breath and dry cough being admitted for observation of acute asthma exacerbation asthma with acute exacerbation no hypoxia covid, flu, RSV negative CXR negative for pneumonia scheduled and prn breathing treatments systemic steroids symptomatic support for cough dvt ppx - low risk, early ambulation code status - full code attending - Dr. Osborn Quality Stroke Does the patient have a stroke diagnosis?: No VTE Prior VTE?: No VTE Risk Level:: Medical - moderate - high VTE Device Contraindication: N/A - Device Ordered VTE Drug Contraindication: N/A - Med Ordered
--- NOTE | 2023-01-18 16:51 | PHA.MEDREC ---
Pharmacy Consult ? Medication Reconciliation Pharmacy has completed the medication reconciliation. Spoke to patient to confirm meds. Patient states they could not get Advair or Spiriva because they were ~$500 .
[2023-01-18 17:10] LABS: B Type Natriuretic Peptide < 10 pg/mL (<100)
--- NOTE | 2023-01-18 17:50 | PC.NURSE ---
Addendum entered by Monica Saini RN 01/18/23 18:08: pt with audible expiratory wheezing with deep breath. Dr. Osborn evaluated pt and aware of pt condition. awaiting pt transport to room. Original Note: pt sts he feels like his asthma is acting up again. pt sating 97% on room air. RR 16. pt changed over to hospital attire, pt to being pajama pants for pt. pt is speaking in full complete sentences. no labored breathing. no audible wheezing. denies pain. call aburto within reach.
--- NOTE | 2023-01-18 18:03 | PM.EVENT ---
Event Note Date of Service: 01/18/23 Event Note: Addendum to history and physical by the advanced practice provider, NOVA Gorman I interviewed and examined the patient. I discussed their presentation and management with the KATHERINE. I reviewed the history and physical and agree with the documentation, with the following additions and corrections: 42yo M with asthma, recently hospitalized 01/02-01/03, coming in with worsening dyspnea + dry cough + wheezing unrelieved by neb treatments q4h Has extensive expiratory wheezing bilaterally + c/o dyspnea CXR without PNA, RSV/flu/SARS-CoV2 negative Will admit to [facility] for systemic steroids + scheduled/prn nebs Time Spent With Patient Time: Total time managing care of this patient today ____ minutes.
[2023-01-18] MEDS: Benzonatate 100 MG CAPSULE PO (19:56)
[2023-01-18] MEDS: methylPREDNISolone Sod Succ 40 MG/ML VIAL IVPUSH (19:56)
[2023-01-18] MEDS: 0.9 % Sodium Chloride Flush 3 ML SYRINGE IVFLUSH (19:56)
[2023-01-19] VITALS (7 sets, daily range): BP systolic 128–140; BP diastolic 69–84; PULSE 68–87; RESP 16–18; TEMP 36.3–37.1; O2SAT 92–98
[2023-01-19] MEDS: Albuterol/Iprat 2.5/0.5MG 3 ML AMPUL.NEB INHALE ×4 (06:15→20:31)
[2023-01-19] MEDS: methylPREDNISolone Sod Succ 40 MG/ML VIAL IVPUSH ×2 (08:21→21:08)
[2023-01-19] MEDS: 0.9 % Sodium Chloride Flush 3 ML SYRINGE IVFLUSH ×3 (08:21→20:52)
[2023-01-19] MEDS: Acetaminophen 325 MG TABLET 650 MG PO (08:22)
[2023-01-19] MEDS: Benzonatate 100 MG CAPSULE PO ×2 (08:22→16:53)
--- NOTE | 2023-01-19 09:56 | MHC.CM.PN ---
CM MET WITH PT WITH THE ASSISTANCE OF A FITTER TYPE BAR AND SEGMENT PT REPORTS HE LIVES WITH FAMILY AND IS INDEPENDENT WITH CARE HE USES A NEBULIZER FOR DME AND HAS NO SERVICES PT COMPLETED A HCP TODAY NAMING HIS S/O, ALTAGRACIA [phone] HIS AGENT HE SAYS HIS PCP IS AT [facility] IN [place] OBSERVATION NOTICE DELIVERED DCP: HOME NO SERVICES VIA PRIVATE TRANSPORT
[2023-01-19 10:02] LABS: Adenovirus PCR Not Detected (Not Detect.); Bordetella parapertussis PCR Not Detected (Not Detect.); Bordetella pertussis PCR Not Detected (Not Detect.); Chlamydia pneumoniae PCR Not Detected (Not Detect.); Coronavirus 229E PCR Not Detected (Not Detect.); Coronavirus HKU1 PCR Not Detected (Not Detect.); Coronavirus NL63 PCR Not Detected (Not Detect.); Coronavirus OC43 PCR Not Detected (Not Detect.); Human metapneumovirus PCR Not Detected (Not Detect.); Influenza A PCR Not Detected (Not Detect.); Influenza B PCR Not Detected (Not Detect.); Mycoplasma pneumoniae PCR Not Detected (Not Detect.); Parainfluenza 1 PCR Not Detected (Not Detect.); Parainfluenza 2 PCR Not Detected (Not Detect.); Parainfluenza 3 PCR Not Detected (Not Detect.); Parainfluenza 4 PCR Not Detected (Not Detect.); RSV PCR Not Detected (Not Detect.); Rhino/Enterovirus PCR Not Detected (Not Detect.)
[2023-01-19 10:16] LABS: SARS-CoV-2 PCR Not Detected (Not Detect.)
--- NOTE | 2023-01-19 10:47 | HO.PM.IMPN ---
Subjective Subjective Date of Service: 01/19/23 Interval History: seen and examined this morning follow up for asthma exacerbation history obtained with the assistance of a asl interpreter reports ongoing dry cough, wheezing and sob has headache today with coughing denies any pets, allergies, does not work with chemicals. does follow with pulmonology at [facility], has been prescribed other inhalers besides albuterol but they have not been covered by insurance. 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 Review of Systems Review of Systems: Yes all other systems are reviewed and are negative Constitutional Constitutional: Denies chills and Denies fever(s) Cardiovascular Cardiovascular: Denies chest pain, Denies palpitations and Reports dyspnea Respiratory Respiratory: Reports cough and Reports dyspnea Gastrointestinal Gastrointestinal: Denies abdominal pain Endocrine Endocrine: Denies palpitations Physical Exam Vital Signs: Vital Signs: Last Vital Signs Temp 98.7 F 01/19/23 07:22 Pulse 68 01/19/23 07:22 Resp 16 01/19/23 07:22 BP 128/72 01/19/23 07:22 Pulse Ox 92 01/19/23 07:22 O2 Del Method Room Air 01/19/23 07:22 BMI result Body Mass Index 35.8 Const: General: cooperative, comfortable, no acute distress, alert and awake Nutritional Appearance: average body habitus Orientation/consciousness: patient oriented x3 Resp: Other: diffuse wheezing b/l, improving Cardio: Rate: regular rate Heart sounds: S1 normal heart sound present and S2 normal heart sound present GI: Inspection: No distended Palpation (GI): Soft to palpation and nontender Neuro: General: patient oriented x3, moves all extremities and CN's II-XI intact bilaterally Extrem: General: Yes no pedal edema Objective Data Active Medications Acetaminophen (Acetaminophen 325 Mg Tablet) 650 mg PO Q6H PRN PRN Reason: Pain, Mild (Pain Scale 1-3) Last Admin: 01/19/23 08:22 Dose: 650 mg Documented By: COTEMA Albuterol Sulfate (Albuterol Sulfate (0.083%) 2.5 Mg/3 Ml Vial.Neb) 2.5 mg INHALE Q4H PRN PRN Reason: Shortness of Breath/Wheezing Albuterol/Ipratropium (Albuterol/Iprat 2.5/0.5mg 3 Ml Ampul.Neb) 3 ml INHALE RQ4H WHILE AWAKE [facility] Last Admin: 01/19/23 06:15 Dose: 3 ml Documented By: ROJAS Benzonatate (Benzonatate 100 Mg Capsule) 100 mg PO TID PRN PRN Reason: Cough Last Admin: 01/19/23 08:22 Dose: 100 mg Documented By: JUNIE Docusate Sodium (Docusate Sodium 100 Mg Capsule) 100 mg PO DAILY PRN PRN Reason: Constipation Guaifenesin/Dextromethorphan (Guaifenesin Dm 100/10/5 Ml 5 Ml Syrup) 5 ml PO Q6H [facility] Losartan Potassium (Losartan Potassium 50 Mg Tablet) 50 mg PO DAILY [facility]; Protocol Methylprednisolone Sodium Succinate (Methylprednisolone Sod Succ 40 Mg/Ml Vial) 40 mg IVPUSH Q12H [facility] Last Admin: 01/19/23 08:21 Dose: 40 mg Documented By: JUNIE Ondansetron HCl (Ondansetron Hcl 4 Mg/2 Ml Vial) 4 mg IVPUSH Q8H PRN PRN Reason: Nausea and Vomiting Sodium Chloride (0.9 % Sodium Chloride Flush 3 Ml Syringe) 3 ml IVFLUSH QSHIFT [facility] Last Admin: 01/19/23 08:21 Dose: 3 ml Documented By: JUNIE Labs 01/18/23 09:30 01/18/23 09:30 Labs: Laboratory Results - last 24 hr 01/18/23 01/18/23 16:31 18:06 B-Natriuretic Peptide < 10 Hold Yellow Top See Note Respiratory Panel Bolden See Note Adenovirus (Rapid PCR) Not Detected B.pert (TEM-PCR) Not Detected B.parapertussis DNA PCR Not Detected C. pneumoniae DNA (PCR) Not Detected Coronavirus OC43 (PCR) Not Detected Coronavirus HKU1 (PCR) Not Detected Coronavirus 229E (PCR) Not Detected Coronavirus NL63 (PCR) Not Detected Human Metapneumovir PCR Not Detected Influenza A (RT-PCR) Not Detected Influenza B (RT-PCR) Not Detected M. pneumoniae (PCR) Not Detected Parainfluenza 1 (PCR) Not Detected Parainfluenza 2 (PCR) Not Detected Parainfluenza 3 (PCR) Not Detected Parainfluenza 4 (PCR) Not Detected RSV (PCR) Not Detected Entero/Rhino (PCR) Not Detected SARS-CoV-2 RNA (RT-PCR) Not Detected Assessment and Plan (1) Asthma with acute exacerbation: Status: Acute Plan This is a 42 year old male with history of asthma and recent admission to the hospital for the same who presents to the ED with two days of worsening shortness of breath and dry cough being admitted for observation of acute asthma exacerbation acute respiratory failure due to acute asthma exacerbation ED nurse documented O2 sat of 88% - no episodes of hypoxia since then. no history of intubation RPP negative. CXR negative for pneumonia, BNP negative continue scheduled and prn breathing treatments continue systemic steroids symptomatic support for cough HTN continue losartan dvt ppx - low risk, early ambulation code status - full code attending - Dr. Verduzco Quality Stroke Does the patient have a stroke diagnosis?: No VTE Prior VTE?: No VTE Risk Level:: Medical - moderate - high VTE Device Contraindication: N/A - Device Ordered VTE Drug Contraindication: N/A - Med Ordered
[2023-01-19] MEDS: Butalb/Acetamin/Caff 50/325/40 TABLET 1 TAB PO (10:50)
[2023-01-19] MEDS: guaiFENesin DM 100/10/5 ML 5 ML SYRUP PO ×3 (10:50→21:08)
[2023-01-20 03:17] VITALS: BP 126/76; PULSE 73; RESP 18; TEMP 36.5; O2SAT 94
[2023-01-20] MEDS: guaiFENesin DM 100/10/5 ML 5 ML SYRUP PO ×2 (04:01→08:38)
[2023-01-20 07:47] VITALS: BP 125/78; PULSE 68; RESP 15; TEMP 36.6; O2SAT 92
[2023-01-20] MEDS: Albuterol/Iprat 2.5/0.5MG 3 ML AMPUL.NEB INHALE (08:10)
[2023-01-20 08:15] VITALS: PULSE 68; RESP 18; O2SAT 92
--- NOTE | 2023-01-20 08:23 | P.DS_ITS ---
DS: Providers Provider Date of Service: 01/20/23 Date of admission: 01/18/23 15:50 Primary care physician: None Physician DS: Diagnosis Discharge Diagnosis (1) Asthma with acute exacerbation: Status: Acute DS: Summary Hospital Course Hospital Course: This is a 42 year old male with history of asthma who presents to the ED with complaints of shortness of breath. He had a recent hospitalization here at [facility] from 01/02 to 01/03 and then was placed back on steroids by his child development instructor. He reports worsening shortness of breath for the past two days. He has associated dry cough and pain with coughing. He denies any recent sick contacts. He has been using his nebulizer machine at every 4 hours a continues to have persistent shortness of breath especially with exertion. He denies any chest pain. He denies any history of requiring intubation. In the emergency department chest x-ray showed central vascular prominence and peribronchial cuffing which is unchanged from January 02 chest x-ray. He was afebrile, lab work with minimal elevated in white count at 11.1. He received multiple breathing treatments, IV solumedrol and IV magnesium, but his wheezing persisted. He denies smoking tobacco or any other substances. He will be admitted overnight for observation and further management of acute exacerbation of asthma 42-year-old man treated for acute respiratory failure secondary to acute asthma exacerbation. Treated with IV Solu-Medrol and scheduled DuoNebs with good effect. Initially was hypoxic and required oxygen but no longer requires oxygen at this time respiratory pathogen panel negative, chest x-ray negative for pneumonia. Inpatient home a short prednisone taper, his albuterol inhaler was prescribed for refill. Plan will be to start patient on fluticasone as it is cheaper than Advair. Patient has some very mild expiratory wheezing but no hypoxia and no dyspnea on exertion. hypertension. Continue losartan Time Attestation Discharge coordination time: Greater than 30 minutes Quality: Safe Use of Opioids Does Pt have an Active Cancer Diagnosis on the Problem List?: No Quality: Stroke Does the patient have a stroke diagnosis?: No Physical Exam Vital Signs: Vital Signs: Last Vital Signs Temp 98 F 01/20/23 07:47 Pulse 68 01/20/23 08:15 Resp 18 01/20/23 08:15 BP 125/78 01/20/23 07:47 Pulse Ox 92 01/20/23 07:47 O2 Del Method Room Air 01/20/23 07:47 BMI result Body Mass Index 35.8 Appearing in no acute distress head is normocephalic atraumatic eyes pupils are PERRLA sclera is anicteric mouth throat mucous membranes are intact and moist neck is supple no lymphadenopathy, no JVD noted lung sounds mild exp wheezing heart regular rate rhythm, clear S1, S2 positive bowel sounds, abdomen is soft, nontender neuro patient is alert x3, no focal deficits DS: Data Data Completed and Pending Labs on day of discharge: Laboratory Results - last 24 hr 01/18/23 18:06 Respiratory Panel Bolden See Note Adenovirus (Rapid PCR) Not Detected B.pert (TEM-PCR) Not Detected B.parapertussis DNA PCR Not Detected C. pneumoniae DNA (PCR) Not Detected Coronavirus OC43 (PCR) Not Detected Coronavirus HKU1 (PCR) Not Detected Coronavirus 229E (PCR) Not Detected Coronavirus NL63 (PCR) Not Detected Human Metapneumovir PCR Not Detected Influenza A (RT-PCR) Not Detected Influenza B (RT-PCR) Not Detected M. pneumoniae (PCR) Not Detected Parainfluenza 1 (PCR) Not Detected Parainfluenza 2 (PCR) Not Detected Parainfluenza 3 (PCR) Not Detected Parainfluenza 4 (PCR) Not Detected RSV (PCR) Not Detected Entero/Rhino (PCR) Not Detected SARS-CoV-2 RNA (RT-PCR) Not Detected Discharge Plan Discharge Anticipated Discharge Date/Time: 01/20/23 08:18 Patient Disposition: Home, Self-Care Discharge Diagnosis: Asthma exacerbation Discharge Medications: New prednisone 10 mg tablet See Taper PO DIRECTED Qty: 20 0RF Taper: Prednisone 40 mg daily for 2 Days and 0 Hour 30 mg daily for 2 Days and 0 Hour 20 mg daily for 2 Days and 0 Hour 10 mg daily for 2 Days and 0 Hour Rx Instructions: see taper instructions fluticasone propionate 100 mcg/actuation blister with device 1 inh inhalation BID Qty: 60 0RF Continued losartan 50 mg tablet 50 mg PO DAILY albuterol sulfate [Ventolin HFA] 90 mcg/actuation HFA aerosol inhaler 2 puff inhalation Q6H PRN (Reason: shortness of breath or wheezing) Qty: 6.7 1RF Discontinued prednisone 20 mg tablet See Rx Instructions .ROUTE .COMPLEX Rx Instructions: 40 mg orally daily;END DATE: 01/23/23 Discharge Orders: Discharge Order (Routine); Ordered 01/20/23 Ordered By: Rossana Giang Diet: Advance to usual diet Activity on Discharge: As tolerated Stand Alone Forms: Patient Portal Discharge page Care Plan Goals: Complete prednisone taper Health Concerns: Asthma exacerbation Plan of Treatment: Follow up with your primary care provider as needed Take all medications as prescribed Assessment: See discharge summary Patient Instructions: Asthma (ED)
[2023-01-20] MEDS: methylPREDNISolone Sod Succ 40 MG/ML VIAL IVPUSH (08:37)
[2023-01-20] MEDS: Losartan Potassium 50 MG TABLET PO (08:38)
[2023-01-20] MEDS: 0.9 % Sodium Chloride Flush 3 ML SYRINGE IVFLUSH (08:40)
--- NOTE | 2023-01-20 10:53 | MHC.CM.PN ---
DP: PT HAS BEEN MEDICALLY CLEARED FOR DC HOME, NO SERVICES. PT HAS OWN RIDE HOME.
== END 2023-01-20 11:17 | disposition home or self-care (01) ==
LOC: HO.ED 15:14 → HO.EDOVER 16:11 → HO.S3 16:40
PROVIDERS: Nurse Practitioner Family; Admitting Provider Physician Assistant Medical; Emergency Provider Emergency Medicine; Visit Provider Nurse Practitioner Acute Care
DX: J45.901 Unspecified asthma with (acute) exacerbation (principal); R05.9 Cough, unspecified; I10 Essential (primary) hypertension; R06.02 Shortness of breath; Z20.822 Contact with and (suspected) exposure to COVID-19; Z20.828 Contact with and (suspected) exposure to other viral communicable diseases
CPT/HCPCS: 0241U; 36415; 71046; 80048; 80076; 83880; 85025; 87633; 94640; 96365; 96366; 96375; 96376; 99221; 99285; J2920; J2930; J3475

== ENCOUNTER → 2023-01-18 15:50 | Outpatient (BNV) | payer BC, SELFPAY | PROVIDERS: Admitting Provider Physician Assistant Medical; Emergency Provider Emergency Medicine; Visit Provider Family Medicine | DX: J45.901 Unspecified asthma with (acute) exacerbation (principal) | CPT/HCPCS: 99223; 99232; 99239; 99499 ==

== ENCOUNTER 2023-07-26 07:11 | Emergency (ER) | payer OTHER, SELFPAY ==
[2023-07-26 07:28] VITALS: BP 131/85; PULSE 74; RESP 16; TEMP 36.6; O2SAT 98; BMI 32.8
--- NOTE | 2023-07-26 08:42 | ED_ITS ---
HPI - Asthma General Chief Complaint: Upper Respiratory Symptoms Stated Complaint: asthma Time Seen by Provider: 07/26/23 08:26 Source: patient Mode of arrival: ambulatory History of Present Illness ED Provider: Dr Alfaro HPI Narrative: 43-year-old male who presents with having run out of medication as the [facility] pharmacy is closed, reports that he has to use his inhaler daily and that he ran out yesterday. He denies any fever/chills. Related Data Home Medications ?Medication ?Instructions ?Recorded ?Confirmed losartan 50 mg tablet 50 mg PO DAILY 01/18/23 01/18/23 Previous Rx's ?Medication ?Instructions ?Recorded albuterol sulfate 90 mcg/actuation 2 puff inhalation Q6H PRN 01/20/23 aerosol inhaler (Ventolin HFA) shortness of breath or wheezing #6.7 grams fluticasone propionate 100 1 inh inhalation BID #60 ea 01/20/23 mcg/actuation blister powder for inhalation prednisone 10 mg tablet See Taper PO DIRECTED #20 tabs 01/20/23 prednisone 50 mg tablet 50 mg PO DAILY 4 days #4 tabs 07/26/23 Allergies Allergy/AdvReac Type Severity Reaction Status Date / Time No Known Allergies Allergy Verified 07/26/23 07:29 [No Known Allergies*] Review of Systems Review of Systems: Pertinent positives and negatives as stated in HPI PMFSH Past Medical History Source: nursing notes reviewed Medical History Asthma Family History Family History Brother Asthma Social History Social History Patient Tobacco Use Status: Never used Tobacco Advance Directives: No Advance Directives Information Provided: No service: No Physical Exam Vital Signs: Vital Signs: Last Vital Signs Temp 97.9 F 07/26/23 07:28 Pulse 71 07/26/23 09:03 Resp 20 07/26/23 09:03 BP 131/85 07/26/23 07:28 Pulse Ox 98 07/26/23 07:28 O2 Del Method Room Air 07/26/23 07:28 BMI result Body Mass Index 32.8 VITAL SIGNS: Reviewed. GENERAL: Well developed, well nourished, in no acute distress. HEAD: Normocephalic/atraumatic EYES: PERRLA, EOMI EARS: Ext canals without abnormality NOSE: Nares patent bilateral OROPHARYNX: no oral lesions noted, posterior pharynx clear NECK: Supple, no adenopathy LUNGS: Mildly decreased throughout with mild expiratory wheeze, no tachypnea or increased work of breathing. SpO2<98> CARDIOVASCULAR: Regular rate and rhythm without noted murmurs ABDOMEN: Soft, non-tender, non-distended with bowel sounds. MUSCULOSKELETAL: No tenderness, deformities, or effusions noted on gross inspection. EXTREMITIES: No cyanosis, clubbing or edema. SKIN: Inspection of the skin reveals no rashes NEUROLOGIC: Alert and oriented x 4. Strength and sensation to light touch were grossly intact x 4. Medications Administered Discontinued Medications Generic Name Dose Route Start Last Admin Trade Name Freq PRN Reason Stop Dose Admin Albuterol Sulfate 4 puff 07/26/23 09:02 07/26/23 09:04 Albuterol Sulfate 90 Mcg 8 Gm Inhaler INHALE 07/26/23 09:03 4 puff ONCE ONE Administration Prednisone 50 mg 07/26/23 08:26 07/26/23 08:59 Prednisone 10 Mg Tablet PO 07/26/23 08:27 50 mg ONCE ONE Administration Medical Decision Making Medical Decision Making MDM Narrative: 43-year-old male with history and clinical presentation, DDX: Mild asthma exacerbation without hypoxia INTERVENTION: Prednisone, Ventolin On re-evaluation patient is feeling improved and will be discharged home. Differential Diagnosis Differential Diagnoses: The differential diagnosis associated with the presentation includes Please see the discussion above Admission/Observation Consideration of admission/observation: Escalation of care including admission/observation considered Please see the discussion above Chronic Conditions Patient?s care impacted by: Other Asthma Discharge Plan Discharge Clinical Impression: Asthma Patient Disposition: Home, Self-Care Instructions: Asthma (ED) Additional Instructions: 1. Complete the short course of steroids as prescribed. 2. You need to start using seasonal allergy medication such as Claritin/Flonase/Pamela 3. Follow-up with primary care doctor and your residential advisor. Return to the ER for any worsening symptoms. Prescriptions: New prednisone 50 mg tablet 50 mg PO DAILY 4 Days Qty: 4 0RF No Action losartan 50 mg tablet 50 mg PO DAILY prednisone 10 mg tablet See Taper PO DIRECTED Qty: 20 0RF Taper: Prednisone 40 mg daily for 2 Days and 0 Hour 30 mg daily for 2 Days and 0 Hour 20 mg daily for 2 Days and 0 Hour 10 mg daily for 2 Days and 0 Hour Rx Instructions: see taper instructions albuterol sulfate [Ventolin HFA] 90 mcg/actuation HFA aerosol inhaler 2 puff inhalation Q6H PRN (Reason: shortness of breath or wheezing) Qty: 6.7 1RF fluticasone propionate 100 mcg/actuation blister with device 1 inh inhalation BID Qty: 60 0RF Print Language: Malian
[2023-07-26] MEDS: predniSONE 10 MG TABLET 50 MG PO (08:59)
[2023-07-26 09:03] VITALS: PULSE 71; RESP 20; O2SAT 97
[2023-07-26] MEDS: Albuterol Sulfate 90 MCG 8 GM INHALER 4 PUFF INHALE (09:04)
[2023-07-26 09:43] VITALS: BP 142/89; PULSE 68; RESP 16; TEMP 36.5; O2SAT 96
== END 2023-07-26 09:43 | disposition home or self-care (01) ==
PROVIDERS: Emergency Provider Student in an Organized Health Care Education/Training Program
DX: J45.909 Unspecified asthma, uncomplicated (principal); Z76.0 Encounter for issue of repeat prescription
CPT/HCPCS: 94640; 99283; 99284

== ENCOUNTER 2024-07-24 10:37 | Emergency (ER) | payer OTHER, SELFPAY ==
--- NOTE | ~2024-07-24 | CT_ITS ---
CLINICAL HISTORY: RLQ pain, reports hx of renal colic CT abdomen and pelvis with contrast Comparison: None Findings: Lung bases clear. No acute bony abnormalities. Liver and spleen within normal limits. Pancreas and adrenal glands unremarkable. Gallbladder is within normal limits. 6 x 9 mm right renal pelvis stone with hydronephrosis. No distal ureteral stone is identified. Small left renal cyst without stone or hydronephrosis. Abdominal aorta is normal in caliber. No free fluid or adenopathy in the pelvis. No diverticulitis. Appendix unremarkable. Impression: 6 x 9 mm right renal pelvis stone with hydronephrosis This document has been electronically signed by: Bienvenido Lomeli MD on 07/24/2024 17:10:59
[2024-07-24 10:54] VITALS: BP 155/91; PULSE 76; RESP 18; TEMP 36.8; O2SAT 97; BMI 35.4
[2024-07-24 11:16] LABS: MANUAL DIFF FLAG NO
[2024-07-24 11:19] LABS: Basophils Absolute Auto 0.1 X10*3/uL (0.0-0.2); Basophils Percent Auto 1.6 % (0-2); Eosinophils Absolute Auto 0.3 X10*3/uL (0.0-0.4); Eosinophils Percent Auto 3.4 % (0-4); Hematocrit 40.2 % (42.0-52.0); Hemoglobin 13.7 g/dl (14.0-18.0); Imm Gran Abs Auto 0.03 X10*3/uL (0.00-0.03); Imm Gran Pct Auto 0.4 % (0.0-0.4); Lymphocytes Percent Auto 24.6 % (20-40); Mean Corpuscular HGB Conc 34.1 g/dl (31.0-36.0); Mean Corpuscular Hemoglobin 28.7 pg (27.0-33.0); Mean Corpuscular Volume 84.3 fL (80.0-98.0); Mean Platelet Volume 9.8 fL (9.4-12.4); Monocytes Absolute Auto 0.7 X10*3/uL (0.1-1.2); Monocytes Percent Auto 8.6 % (2-11); Neutrophils Absolute Auto 4.9 x10*3/uL (2.0-8.3); Neutrophils Percent Auto 61.4 % (45-73); Platelet Count 390 X10*3/uL (160-400); Red Blood Count 4.77 X10*6/uL (4.60-5.80); Red Cell Distribution Width 11.9 % (11.0-16.0)
[2024-07-24 11:34] LABS: Alanine Aminotransferase 15 U/L (0-40); Albumin Level 4.4 g/dL (3.5-5.0); Alkaline Phosphatase 87 U/L (39-117); Anion Gap 12 (12-20); Aspartate Amino Transferase 19 U/L (5-37); Bilirubin Total 0.3 mg/dL (0.0-1.0); Blood Urea Nitrogen 14 mg/dL (9-16); Calcium 9.8 mg/dL (8.4-10.2); Carbon Dioxide 26 mmol/L (22-29); Chloride 108 mmol/L (96-108); Creatinine Clr Calc Pharmacy 114.6; Estimated Glomerular Filt Rate > 60; Glucose Random 105 mg/dL (60-115); Lipase 39 U/L (8-78); Magnesium 1.8 mg/dL (1.6-2.6); Sodium 142 mmol/L (135-145); Total Protein 7.8 g/dL (6.5-8.0)
--- NOTE | 2024-07-24 11:53 | ED_ITS ---
HPI - Abdominal Pain General Chief Complaint: Abdominal Pain Stated Complaint: abd pain Time Seen by Provider: 07/24/24 11:53 Source: patient Mode of arrival: ambulatory Limitations: no limitations History of Present Illness ED Provider: HPI narrative: 44-year-old male reports being diagnosed with a kidney stone about a month ago by CAT scan, presenting with right lower quadrant pain worse in the past 4 days, he states it has been fairly constant but has 4 days he has had worsening pain, no hematuria or dysuria is present, no testicular pain or swelling no fevers or chills no nausea or vomiting reported. Related Data Home Medications ?Medication ?Instructions ?Recorded ?Confirmed losartan 50 mg tablet 50 mg PO DAILY 01/18/23 01/18/23 Previous Rx's ?Medication ?Instructions ?Recorded albuterol sulfate 90 mcg/actuation 2 puff inhalation Q6H PRN 01/20/23 aerosol inhaler (Ventolin HFA) shortness of breath or wheezing #6.7 grams fluticasone propionate 100 1 inh inhalation BID #60 ea 01/20/23 mcg/actuation blister powder for inhalation prednisone 10 mg tablet See Taper PO DIRECTED #20 tabs 01/20/23 prednisone 50 mg tablet 50 mg PO DAILY 4 days #4 tabs 07/26/23 ketorolac 10 mg tablet 10 mg PO Q8H PRN pain 1 day #14 07/24/24 tabs Allergies Allergy/AdvReac Type Severity Reaction Status Date / Time No Known Allergies Allergy Verified 07/24/24 10:56 [No Known Allergies*] Review of Systems Constitutional: Reports as per [facility] Past Medical History Medical History Asthma Family History Family History Brother Asthma Social History Social History Patient Tobacco Use Status: Never used Tobacco Smoked in Last 30 Days: No Advance Directives: No Advance Directives Information Provided: No Do you have a plan to hurt others: No Plan service: No Physical Exam ED Vital Signs: Vital Signs - 24 hr 07/24/24 10:54 07/24/24 13:30 07/24/24 17:20 Temperature 98.2 F Pulse Rate 76 63 71 Respiratory Rate 18 16 16 Blood Pressure 155/91 H 131/84 127/76 Pulse Oximetry 97 96 96 Oxygen Delivery Method Room Air Room Air Room Air 07/24/24 18:11 Temperature Pulse Rate 66 Respiratory Rate 14 Blood Pressure 145/94 H Pulse Oximetry 97 Oxygen Delivery Method Room Air BMI result Body Mass Index 35.4 Const Other: * Gen: ?Overall well-appearing patient * HEENT: PERRLA, EOMI, MMM, * Neck: Supple, no LAD * CV: RRR, no obvious murmurs appreciated * Resp: ?No wheezing rales rhonchi no stridor moving air well * Abd: ?Bowel sounds are present, tender right lower quadrant with voluntary guarding * MSK: FROM, strength 5/5 all extremities * Skin: Warm, dry, intact, * Neuro: ?Alert and oriented x3, moving upper and lower extremities symmetrically, no obvious facial asymmetry noted Course Reevaluation(s) Reevaluation #1: 07/24/2024 DR. Hernandez's Progress note I assumed care for this patient from Dr. Ling at 17:[address] abdomen and pelvis result then dispo the patient, patient feels better right flank pain went from 10/10 now it is 4/10, able to tolerate p.o. intake, normal renal function, case discussed with Dr. Jay if the patient is stable can be discharged home and follow as an outpatient. Time: 18:31 Medical Decision Making Medical Decision Making [facility] Narrative: Worsening pain right lower quadrant, states for a month but sounds like the past 3- 4 days it is getting worse, no hematuria reported, no fevers or chills do not suspect infectious etiology, we will obtain CT with IV contrast to make sure there is no underlying infectious etiology such as appendicitis in the area, we will treat with Toradol, disposition to be determined. 450pm: CT image was not sent over to be read, I made sure they re-sent it and updated pt Differential Diagnosis Differential Diagnoses: The differential diagnosis associated with the presentation includes Renal colic, appendicitis, colitis, diverticulitis, testicular torsion, SBO Admission/Observation Consideration of admission/observation: Escalation of care including admission/observation considered Lab Data MDM Lab Attestation statement: I reviewed the patient's lab results. 07/24/24 11:11 07/24/24 11:11 Labs: Lab Results 07/24/24 07/24/24 Range/Units 11:11 12:30 WBC 8.0 (4.8-10.8) X10*3/uL RBC 4.77 (4.60-5.80) X10*6/uL Hgb 13.7 L (14.0-18.0) g/dl Hct 40.2 L (42.0-52.0) % MCV 84.3 (80.0-98.0) fL MCH 28.7 (27.0-33.0) pg MCHC 34.1 (31.0-36.0) g/dl RDW 11.9 (11.0-16.0) % Plt Count 390 (160-400) X10*3/uL MPV 9.8 (9.4-12.4) fL Immature Gran % (Auto) 0.4 (0.0-0.4) % Neut % (Auto) 61.4 (45-73) % Lymph % (Auto) 24.6 (20-40) % [place] % (Auto) 8.6 (2-11) % Eos % (Auto) 3.4 (0-4) % Baso % (Auto) 1.6 (0-2) % Lymph # (Auto) 2.0 (1.2-4.9) X10*3/uL [place] # (Auto) 0.7 (0.1-1.2) X10*3/uL Eos # (Auto) 0.3 (0.0-0.4) X10*3/uL Baso # (Auto) 0.1 (0.0-0.2) X10*3/uL Abs Immat Gran (auto) 0.03 (0.00-0.03) X10*3/uL Absolute Neuts (auto) 4.9 (2.0-8.3) x10*3/uL Absolute Nucleated RBC 0.000 (0.0-0.012) X10*3/uL Nucleated RBC % (auto) 0.0 (0.0-0.2) /100WBC Sodium 142 (135-145) mmol/L Potassium 4.0 (3.3-5.1) mmol/L Chloride 108 (96-108) mmol/L Carbon Dioxide 26 (22-29) mmol/L Anion Gap 12 (12-20) BUN 14 (9-16) mg/dL Creatinine 1.00 (0.5-1.4) mg/dL Estim Creat Clear Calc 114.6 Estimated GFR > 60 Random Glucose 105 (60-115) mg/dL Calcium 9.8 (8.4-10.2) mg/dL Magnesium 1.8 (1.6-2.6) mg/dL Total Bilirubin 0.3 (0.0-1.0) mg/dL AST 19 (5-37) U/L ALT 15 (0-40) U/L Alkaline Phosphatase 87 (39-117) U/L Total Protein 7.8 (6.5-8.0) g/dL Albumin 4.4 (3.5-5.0) g/dL Lipase 39 (8-78) U/L Urine Color Yellow Urine Appearance Clear Urine pH 6.0 (5.0-9.0) Ur Specific [place] 1.020 (1.005-1.025) Urine Protein Trace (Neg-Trace) mg/dL Urine Glucose (UA) Negative (Negative) mg/dL Urine Ketones Negative (Negative) mg/dL Urine Blood Moderate (2+) H (Negative) Urine Nitrite Negative (Negative) Ur Leukocyte Esterase Negative (Negative) Urine RBC 11-20 H (0-2) /HPF Urine WBC 0-5 (0-5) /HPF Ur Squamous Epith Cells 0-2 (0-2) /HPF Urine Bacteria None Seen (None Seen) Hyaline Casts 0-2 (0-2) /LPF Independent Interpretation I performed an independent interpretation of an: CT Scan ( Abdomen pelvis:6 x 9 mm right renal pelvis stone with hydronephrosis) Radiology Impression Discussion of test interpretation with radiology: I have reviewed the radiologist's reading. Medications Administered Discontinued Medications Generic Name Dose Route Start Last Admin Trade Name Freq PRN Reason Stop Dose Admin Iohexol 85 ml 07/24/24 13:13 07/24/24 13:14 Iohexol 350 Mg/Ml 100 Ml Infus..Btl IV 07/24/24 13:14 85 ml ONCE ONE Administration Ketorolac Tromethamine 15 mg 07/24/24 11:59 07/24/24 12:30 Ketorolac Tromethamine 15 Mg/Ml Vial IVPUSH 07/24/24 12:00 15 mg ONCE ONE Administration Discharge Plan Discharge Clinical Impression: Abdominal pain, right lower quadrant, Calculus of kidney, Renal colic Patient Disposition: Home, Self-Care Instructions: Kidney Stones (ED) Prescriptions: New ketorolac 10 mg tablet 10 mg PO Q8H PRN (Reason: pain) 1 Days Qty: 14 0RF No Action prednisone 50 mg tablet 50 mg PO DAILY 4 Days Qty: 4 0RF losartan 50 mg tablet 50 mg PO DAILY prednisone 10 mg tablet See Taper PO DIRECTED Qty: 20 0RF Taper: Prednisone 40 mg daily for 2 Days and 0 Hour 30 mg daily for 2 Days and 0 Hour 20 mg daily for 2 Days and 0 Hour 10 mg daily for 2 Days and 0 Hour Rx Instructions: see taper instructions albuterol sulfate [Ventolin HFA] 90 mcg/actuation HFA aerosol inhaler 2 puff inhalation Q6H PRN (Reason: shortness of breath or wheezing) Qty: 6.7 1RF fluticasone propionate 100 mcg/actuation blister with device 1 inh inhalation BID Qty: 60 0RF Referrals: Jason Jay MD [Physician] - Print Language: Jamaican
[2024-07-24] MEDS: Ketorolac Tromethamine 15 MG/ML VIAL IVPUSH (12:30)
[2024-07-24 12:36] LABS: Appearance Urine Clear; Color Urine Yellow; Glucose Urine UA Negative (Negative); Leukocyte Esterase Urine Negative (Negative); Nitrite Urine Negative (Negative); UMIC TRIGGER UACC YES; Urine Blood Moderate (2+) (Negative); Urine Ketones Negative (Negative); Urine Protein Trace mg/dL (Neg-Trace)
[2024-07-24 12:38] LABS: Bacteria Urine None Seen (None Seen); Hyaline Casts Urine 0-2 /LPF (0-2); Squamous Epithelial Cell Urine 0-2 /HPF (0-2); WBC Urine 0-5 /HPF (0-5)
[2024-07-24] MEDS: iohexoL 350 MG/ML 100 ML INFUS..BTL 85 ML IV (13:14)
[2024-07-24 13:30] VITALS: BP 131/84; PULSE 63; RESP 16; O2SAT 96
[2024-07-24 17:20] VITALS: BP 127/76; PULSE 71; RESP 16; O2SAT 96
[2024-07-24 18:11] VITALS: BP 145/94; PULSE 66; RESP 14; O2SAT 97
[2024-07-24 18:41] VITALS: BP 145/94; PULSE 66; RESP 14; TEMP 37.1; O2SAT 97
== END 2024-07-24 18:51 | disposition home or self-care (01) ==
PROVIDERS: Emergency Provider Emergency Medicine
DX: N20.0 Calculus of kidney (principal); R10.2 Pelvic and perineal pain; R10.31 Right lower quadrant pain; Z79.899 Other long term (current) drug therapy
CPT/HCPCS: 36415; 74177; 80053; 81001; 83690; 83735; 85025; 96374; 99284; J1885; Q9967

== ENCOUNTER → 2024-07-24 11:59 | Outpatient (BNV) | payer OTHER, SELFPAY | PROVIDERS: Emergency Provider Emergency Medicine; Visit Provider Radiology Diagnostic Radiology | DX: N13.2 Hydronephrosis with renal and ureteral calculous obstruction (principal) | CPT/HCPCS: 74177 ==